=== PATIENT | male | born 1945 | race Caucasian/White ===

== ENCOUNTER → 2018-01-16 14:52 | Outpatient (CLI) | payer MEDICARE, SELFPAY ==
--- NOTE | 2018-01-16 14:56 | XR_ITS ---
XR foot LT min 3V HISTORY: Foot pain ORDERING PHYSICIAN: Suri Leger DPM PATIENT AGE: 72 years COMPARISON: None FINDINGS: Weightbearing views are performed. There is minimal medial subluxation of the proximal phalanx of the second and third toe by 2 to 3 mm. There is a faint lucency along the dorsal proximal aspect of the navicular which could represent an avulsion injury age indeterminate. No other significant anomalies are evident. IMPRESSION: 1. Mild medial subluxation of the proximal phalanx of the second and third toe 2. Probable old avulsion injury of the dorsal and proximal aspect of the navicular
--- NOTE | 2018-01-16 14:56 | XR_ITS ---
XR ankle LT min 3V HISTORY: Left ankle pain ORDERING PHYSICIAN: Suri Leger DPM PATIENT AGE: 72 years COMPARISON: None FINDINGS: Weightbearing views are performed. No fracture or dislocation is evident. Minimal hypertrophic changes are present involving the distal tibia anteriorly and posteriorly as well as the medial malleolus. There is pain calcification within the inner osseous ligament region of the distal tibia and fibula. The ankle joint space is well preserved and the talar dome has an unremarkable appearance. IMPRESSION: 1. Degenerative change with hypertrophic changes of the distal tibia. 2. Calcification within the interosseous ligament which could be due to prior trauma
--- NOTE | 2018-01-16 14:56 | XR_ITS ---
XR foot RT min 3V HISTORY: ORDERING PHYSICIAN: Suri Leger DPM PATIENT AGE: 72 years COMPARISON: None FINDINGS: No fracture or dislocation. No lytic or blastic change. There is normal mineralization.. Osteoarthritic changes are present at the first metatarsophalangeal joint with bony hypertrophic changes of the distal aspect of the first metatarsal. There is some mild mineralization along the anterior aspect of the ankle joint with osteoarthritic changes of the ankle. Prominent os trigonum is noted. There is also mild prominence of the talar beak. IMPRESSION: 1. Osteoarthritis of the first metatarsophalangeal joint. 2. Osteoarthritis of the ankle with mild calcification anterior to the ankle joint
--- NOTE | 2018-01-16 14:56 | XR_ITS ---
XR ankle RT min 3V HISTORY: Right ankle pain ORDERING PHYSICIAN: Suri Leger DPM PATIENT AGE: 72 years COMPARISON: None FINDINGS: Weightbearing views are performed. There are severe osteoarthritic changes of the ankle joint with loss of joint space, osteosclerosis, and osteophyte formation. There are hypertrophic changes of the distal fibula. Soft tissue calcification noted along the anterior aspect of the ankle joint. There some mild flattening of the talar dome. No acute fracture or dislocation. No obvious lytic or blastic change. IMPRESSION: Severe osteoarthritis of the right ankle with mild flattening of the talar dome and mild periarticular calcification anteriorly
== END ==
PROVIDERS: Visit Provider Podiatrist
DX: M25.572 Pain in left ankle and joints of left foot (principal); M25.571 Pain in right ankle and joints of right foot
CPT/HCPCS: 73610; 73630

== ENCOUNTER → 2019-09-11 13:15 | Outpatient (CLI) | payer MEDICARE, SELFPAY ==
--- NOTE | 2019-09-11 13:16 | CT_ITS ---
PROCEDURE: CT ANKLE RT WO CON CLINICAL HISTORY: Ankle instability and ankle pain Total ankle replacement planning, pain COMPARISON: ANKCMRT XR ankle RT min 3V from 01/16/2018 TECHNIQUE: Axial images obtained with sagittal and coronal reformats. All CT scans at the facility use one or more dose reduction, viz: automated exposure control, ma/kV adjustment per patient size (including targeted exams where dose is matched to indication, i.e. head), or iterative reconstruction technique. FINDINGS: There are severe osteoarthritic changes of the ankle joint with loss of joint space, osteosclerosis, and small sub chondral cysts. There is mild flattening of the talar dome. There are mild osteoarthritic changes of both anterior and posterior subtalar joint. Calcific debris is present at the tip of the lateral malleolus. There are some subarticular cystic changes at the anterior subtalar joint. Prominent calcific debris is present along the posterior aspect of the talocalcaneal joint. Mild subarticular cystic changes involve the calcaneus at the subtalar joint posteriorly. Prominent osteophyte is present along the anterior and mid aspect of the talus. No obvious fracture. The talonavicular joint is unremarkable. The proximal and mid tibia and fibula have an unremarkable appearance. No abnormal fluid collections or soft tissue masses. IMPRESSION: Severe osteoarthritis of the ankle joint with mild osteoarthritic changes of the subtalar joint as described above Dictated by: Karthikeyan Bey MD 09/12/2019 09:26 Electronically signed by Karthikeyan Bey MD in [place] 09/12/2019 09:26
== END ==
PROVIDERS: PCP Family Medicine; Visit Provider Podiatrist
DX: M25.371 Other instability, right ankle (principal); M19.171 Post-traumatic osteoarthritis, right ankle and foot
CPT/HCPCS: 73700

== ENCOUNTER → 2019-09-30 13:56 | Outpatient (CLI) | payer MEDICARE, SELFPAY ==
--- NOTE | 2019-09-30 14:06 | XR_ITS ---
PROCEDURE: XR CALCANEUS RT MIN 2V CLINICAL INDICATION: pain, pre op Left foot and ankle pain COMPARISON: ANKCMRT XR ankle RT min 3V from 01/16/2018 CT ANKLE RT WO CON from 09/11/2019 XR FOOT WT BEARING RT 3V from 09/30/2019 XR ANKLE WT BEARING RT MIN 3V from 09/30/2019 FINDINGS: Osteoarthritic changes are present at the tail 0 tibial joint. There is a prominent calcific density posterior to the talus and may represent a prominent os trigonum or an old fracture of the prominent posterior talar process. There is lateral talar tilt. There are severe osteoarthritic changes of the tibial talar joint with osteosclerosis of the talar dome. Hypertrophic changes are present at the tibiofibular joint and at the tip of the lateral malleolus. There is some hyperostosis of the anterior and distal aspect of the talus with osteoarthritic change of the talonavicular joint. There are mild osteoarthritic changes of the posterior subtalar joint. Osteoarthritic changes are also present at the 1st metatarsal phalangeal joint with bony spurring. No fracture or dislocation. No lytic or blastic change. IMPRESSION: Severe osteoarthritic changes of the ankle with prominent ossicle posterior to the talus which may represent an old freitas's fracture or prominent os trigonum. 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 Lateral talar tilt with sclerosis of the talar dome Dictated by: Karthikeyan Bey MD 09/30/2019 16:02 Electronically signed by Karthikeyan Bey MD in [place] 09/30/2019 16:02
--- NOTE | 2019-09-30 14:07 | XR_ITS ---
PROCEDURE: XR CHEST 2V CLINICAL HISTORY: HTN, PRE OP COMPARISON: No exams were available for comparison FINDINGS: The cardiomediastinal silhouette and pulmonary vascularity are within normal limits. The lungs are clear without infiltrates, suspicious nodules, or pleural effusions. No acute bony abnormalities. IMPRESSION: No acute findings. Dictated by: Karthikeyan Bey MD 09/30/2019 15:50 Electronically signed by Karthikeyan Bey MD in [place] 09/30/2019 15:50
--- NOTE | 2019-09-30 14:41 | ECG_ITS ---
APPROVED REPORT Exam: Resting ECG HR:61 bpm ECG Measurements Heart Rate 61 AXES OK 238 P -1 QRSd 80 QRS -12 QT 388 T 50 QTc 390 <Conclusion> Sinus rhythm with 1st degree AV block Nonsignificant Q waves in III and aVF noted Abnormal ECG Electronically signed by : Eliecer Espinal, 10/02/2019 08:12:42
[2019-09-30 15:10] LABS: Basophils # 0.1 K/mm3 (0-0.2); Basophils % 0.8 % (0.1-2.0); Eosinophils # 0.3 K/mm3 (0.0-0.4); Eosinophils % 3.4 % (0.1-12.0); Hematocrit 48.9 % (42.0-52.0); Hemoglobin 16.3 g/dL (14.1-18.0); Lymphocytes # 2.5 K/mm3 (0.7-4.5); Lymphocytes % 28.4 % (10-50); Mean Corpuscular HGB Conc 33.4 g/dL (31.8-35.4); Mean Corpuscular Hemoglobin 31.3 pg (27.0-31.2); Mean Corpuscular Volume 93.6 fl (80-94); Mean Platelet Volume 12.2 fl (7.4-10.4); Monocytes # 0.7 K/mm3 (0.1-1.0); Monocytes % 8.1 % (1.7-9.3); Neutrophils # 5.1 K/mm3 (1.8-7.8); Neutrophils % 59.3 % (37.0-80.0); Platelet Count 197 K/mm3 (142-424); Red Blood Count 5.22 M/mm3 (4.60-6.20); Red Cell Distribution Width 13.6 % (11.5-17.5); White Blood Count 8.7 K/mm3 (4.8-10.8)
[2019-09-30 15:58] LABS: Alanine Aminotransferase 27 U/L (12-78); Albumin Level 3.9 gm/dL (3.4-5.0); Albumin/Globulin Ratio 1.2 (1.1-1.8); Alkaline Phosphatase 74 U/L (46-116); Aspartate Amino Transferase 19 U/L (15-37); Bilirubin,Total 0.4 mg/dL (0.2-1.0); Blood Urea Nitrogen 17 mg/dL (7-18); Carbon Dioxide 27 mmol/L (21.0-32.0); Chloride 106 mmol/L (98-107); Creatinine,Serum 0.84 mg/dL (0.70-1.30); Estimated Glomerular Filt Rate 90 ml/min (>60); GFR (African American) 109 ML/MIN (>60); Globulin 3.2 gm/dl (1.3-3.2); Glucose 99 mg/dL (74-106); Sodium 140 mmol/L (136-145); Total Protein,Serum 7.1 gm/dL (6.4-8.2)
[2019-10-02 09:17] LABS: Vitamin D 25 Hydroxy 17.4 ng/mL (30.0-100.0)
== END ==
PROVIDERS: PCP Internal Medicine; Visit Provider Podiatrist
DX: Z01.818 Encounter for other preprocedural examination; M25.571 Pain in right ankle and joints of right foot; M79.671 Pain in right foot; M65.9 Synovitis and tenosynovitis, unspecified; M85.60 Other cyst of bone, unspecified site
CPT/HCPCS: 36415; 71046; 73610; 73630; 73650; 80053; 82652; 85025; 93005

== ENCOUNTER → 2019-10-20 11:50 | Outpatient (CLI) | payer MEDICARE, SELFPAY ==
--- NOTE | 2019-10-20 11:55 | CA_ITS ---
APPROVED REPORT EXAM: Comprehensive 2D, Doppler, and color-flow Echocardiogram Steel Sampler: Didi Ram CRT Ht: 5 ft 5 in Wt: 200lbs BSA: 1.98 BP: 126/76 mmHg Indications: PRE-OP ANKLE SURGERY IN AM. ABN EKG, COPD, HTN, HLD 2D Dimensions LVOT 1.80 cm (M/F) 1.5-2.5 M-Mode Dimensions RVDd 2.50 cm (0.9-2.6) LA Diam 3.80 cm (1.9-4.0) LVDd 4.00 cm (3.5-5.7) Ao Diam 3.60 cm (2.0-3.7) LVDs 2.30 cm (3.5-5.7) AV Cusp 1.70 cm (1.5-2.6) IVSd 2.00 cm (0.6-1.1) PWd 1.20 cm (0.6-1.1) EF (Teich) 74.10% FS 42.50% EDV (Teich) 70.00 mL ESV (Teich) 18.10 mL LV Diastology E/A Ratio 0.80 MED E' 9.07 (< 7 cm/sec) E'/MED E' Ratio 9.40 (>14) LAT E' 8.68 (<10 cm/sec) E/LAT E' Ratio 9.80 (>14) Aortic Valve AoV Peak Roel. 178.00 (50-130 cm/s) AO Peak GR. 13.00 mmHg Mitral Valve MV E Max Roel. 85.40 (40-130 cm/s) MV A Velocity 101.00 (40-130 cm/s) E/A Ratio 0.80 Pulmonary Valve WA End VMAX 102.00 cm/s PA Accel Time 144.00 (>120 msec) Tricuspid Valve TR P. Velocity 225.00 cm/s RAP Estimate 10.00 mmHg RVSP 30.00 mmHg Left Ventricle Left atrium is mildly enlarged, left ventricle is normal size, mild concentric left ventricular hypertrophy, visually estimated ejection fraction of 55% with no regional wall motion abnormality, septum is sigmoid configuration, grade 1 diastolic dysfunction seen without tissue Doppler evidence of raise left atrial pressure. Right Ventricle Right atrium and right ventricular normal size and contractility. Aortic Valve Aortic valve is thickened and calcified leaflet continue to display good mobility, there is no aortic stenosis or aortic insufficiency. Mitral Valve Mitral valve is grossly normal, there is mild mitral regurgitation. Tricuspid Valve Tricuspid valve is grossly normal, there is mild tricuspid regurgitation. Pulmonic Valve Pulmonic valve is poorly visualized. Great Vessels Aortic root is normal size. Pericardium No significant pericardial effusion noted. Conclusion 1. Mildly enlarged left atrium, normal left ventricular size, mild concentric left ventricular hypertrophy, visually estimated ejection fraction 55% with no regional wall motion abnormality, septum is sigmoid configuration. Grade 1 diastolic dysfunction seen without tissue Doppler evidence of raise left atrial pressure. 2. Thickened and calcified aortic valve without Doppler evidence of aortic stenosis aortic insufficiency. 3. Mild mitral and tricuspid regurgitation. 4. No significant pericardial effusion noted. Electronically signed by : Stew Carranza, 10/21/2019 05:33:03
== END ==
PROVIDERS: PCP Nurse Practitioner Family; Visit Provider Internal Medicine
DX: R94.31 Abnormal electrocardiogram [ECG] [EKG] (principal)
CPT/HCPCS: 93306

== ENCOUNTER 2019-10-21 06:05 | Observation (INO) ==
--- NOTE | 2019-10-21 06:56 | Progress Note ---
[facility] Anesthesia Checklist - Structural Data Admitted From: Home Planned Operative Procedure/s: r total ankle Consent for Planned Operative Procedure(s) Verified: Yes - Additional verifications Anesthesia Reactions: No Hx Blood Transfusions: No Blood Transfusion Reaction: No - Airway Assessment C-Spine Mobility Assessed: Yes TMJ Mobility Assessed: Yes Dentition: Dentures-good fit - Neurological Assessment Level of Consciousness: Awake, Alert, Appropriate - Anesthesia Plan Anesthesia Risk discussed: Yes Anesthesia Plan: Verified ASA Class: II Anesthesia Type: General [facility] History I have reviewed the patient's past medical history: Yes Medical History: Reports:: Chronic Obstructive Pulmonary Disease (COPD), Hyperlipidemia, Hypertension Denies:: Asthma, Cancer, Cerebrovascular Accident, Diabetes Mellitus Type 1, Diabetes Mellitus Type 2, Gastroesophageal Reflux Disease(GERD), Internal Pacemaker, MRSA, Myocardial Infarction, Seizures *Have you ever received a pneumonia vaccine?: No *Have you received a flu vaccine this season?: No Other Medical History: Reports: Arthritis. Denies: Blood Transfusion Reaction Anesthesia experience/problems:: none Laterality Cases: Left: Total Knee Replacement Other Surgeries: Yes: No Previous Surgery, Colonoscopy. No: Pacemaker Amputation: No Fractures: No - *Social History Educational Level: Attended High School Smoking Status: Never smoker Alcohol Intake: never Alcohol Intake Frequency:: other Substance Use Type: denies use *Occupational Status:: retired Housing: house Household Members: spouse *Travel in the last 8 weeks: None Family Hx:: Diabetes, Hyperlipidemia, Hypertension
--- NOTE | 2019-10-21 07:33 | History & Physical Report ---
*Admission Date: 10/21/19 *Reason for consult:: Post Op R Total Ankle Replacement *History of present illness: Mr. Bhagat is a 74 y/o male who presents for admission 23-hour observation after surgery of the right ankle today. Patient had a right ankle arthroplasty (replacement) along with a subtalar joint fusion, peroneal tendon repair and ligament stabilization. No complications during surgery. Patient has a past medical history of COPD, hypertension, hyperlipidemia and an abnormal ECG. Patient usually goes to the [place] but did see [facility] Ortiz/Dr. Newell for medical clearance. Due to the abnormal EKG patient was sent for cardiology clearance. Dr. Felix saw the patient he had an echo and he was cleared for surgery. Postoperatively patient will need medical management. [facility] History I have reviewed the patient's past medical history: Yes Medical History: Reports:: Chronic Obstructive Pulmonary Disease (COPD), Hyperlipidemia, Hypertension Denies:: Asthma, Cancer, Cerebrovascular Accident, Diabetes Mellitus Type 1, Diabetes Mellitus Type 2, Gastroesophageal Reflux Disease(GERD), Internal Pacemaker, MRSA, Myocardial Infarction, Seizures *Have you ever received a pneumonia vaccine?: No *Have you received a flu vaccine this season?: No Other Medical History: Reports: Arthritis. Denies: Blood Transfusion Reaction Anesthesia experience/problems:: none Laterality Cases: Left: Total Knee Replacement Other Surgeries: Yes: No Previous Surgery, Colonoscopy. No: Pacemaker Amputation: No Fractures: No - *Social History Educational Level: Attended High School Smoking Status: Never smoker Alcohol Intake: never Alcohol Intake Frequency:: other Substance Use Type: denies use *Occupational Status:: retired Housing: house Household Members: spouse *Travel in the last 8 weeks: None Family Hx:: Diabetes, Hyperlipidemia, Hypertension Review of Systems - Review of Systems Review of systems:: pertinent systems reviewed and negative unless documented below - Constitutional Denies chills, Denies malaise - Eyes Denies blurry vision - ENT Reports other (dentures), Denies abnormal hearing - *Cardiovascular Denies chest pain, Denies shortness of breath - *Respiratory Denies chest congestion, Denies shortness of breath - *Gastrointestinal Denies abdominal pain, Denies vomiting - *Genitourinary Denies difficulty urinating - *Musculoskeletal Reports limited joint movement - Integumentary/Breasts Reports nail changes, Reports dry skin - *Neurologic Reports localized weakness - Psychiatric Denies abnormal sleep pattern - Endocrine Denies cold intolerance - Hematologic/Lymphatic Reports easy bruising - Allergic/Immunologic Reports GI upset with certain foods Meds Home Medications Medication Instructions Recorded Confirmed Type finasteride 5 mg tablet 5 mg PO DAILY 90 Days tab 01/16/18 10/21/19 History hydrocodone 7.5 mg-acetaminophen 1 tab PO ONCE 01/16/18 10/21/19 History 325 mg tablet hydroxyzine HCl 10 mg tablet 10 mg PO TID-QID PRN 01/16/18 10/21/19 History lisinopril 20 mg tablet 20 mg PO DAILY 90 Days tab 01/16/18 10/21/19 History simvastatin 40 mg tablet 40 mg PO DAILY 90 Days tab 01/16/18 10/21/19 History diclofenac 1 % topical gel 4 g TOPICAL QID #30 g 04/07/19 10/21/19 Rx ondansetron HCl 4 mg tablet 4 mg PO QID PRN #30 tab 10/02/19 10/21/19 Rx Cholecalciferol (Vitamin D3) 50,000 unit PO WEEKLY 10/20/19 10/21/19 History [Vitamin D3 50,000 unit Cap] Ibuprofen 800 mg PO TID 10/20/19 10/21/19 History Allergies Allergy/AdvReac Type Severity Reaction Status Date / Time No Known Allergies Allergy Verified 10/20/19 11:08 Exam Vital signs and Labs for Last 24 Hours: Temp Pulse Resp BP Pulse Ox 97.6 F 60 18 150/84 H 95 10/21/19 06:29 10/21/19 06:29 10/21/19 06:29 10/21/19 06:29 10/21/19 06:29 I & O for Last 24 hours: Intake & Output 10/18/19 10/19/19 10/20/19 10/21/19 11:59 11:59 11:59 11:59 Weight 200 lb - Constitutional no acute distress - *Routine HEENT Exam Head: Present: normocephalic Eye: Present: PERRL - *Routine Neck Exam Present: supple - *Routine Respiratory Exam Present: accessory muscle use, CTA bilaterally - *Routine Cardiovascular Exam Present: RRR - *Routine Abdominal Exam Present: soft, obese - *Routine Rectal Exam Patient deferred: visual exam - *Routine Exam Patient deferred: penile exam - *Routine Extremities Exam Present: edema, pulses intact. Absent: calf tenderness - *Routine Skin Exam Present: intact, dry - *Routine Neurological Exam Present: alert, oriented X3, moving all extremities - Detailed Lower Extremity Exam Leg image: 1 - Right LE splint and dressing clean dry and intact. CFT wnl. Skin temp wnl. Decreased motor function and light touch sensation decreased secondary to nerve block. No calf or thigh pain noted b/l. Results - Labs Labs: All other labs normal. - Diagnostic results Ankle/Foot x-ray: pending Ankle/Foot CT: report reviewed Assessment and Plan (1) Post-traumatic osteoarthritis, right ankle and foot Current visit: Yes Status: Acute Category: Medical Code(s): M19.171 - Pos t-traumatic osteoarthritis, right ankle and foot (2) Right ankle instability Current visit: Yes Status: Acute Category: Medical Code(s): M25.371 - Other instability, right ankle (3) Acquired equinus deformity of right foot Current visit: Yes Status: Acute Category: Medical Code(s): M21.6X1 - Other acquired deformities of right foot (4) Synovitis of right ankle Current visit: Yes Status: Acute Category: Medical Code(s): M65.9 - Synovitis and tenosynovitis, unspecified (5) Chronic pain of right ankle Current visit: Yes Status: Acute Category: Medical Code(s): M25.571 - Pain in right ankle and joints of right foot; G89.29 - Other chronic pain (6) Obesity (BMI 30.0-34.9) Current visit: Yes Status: Acute Category: Medical Code(s): E66.9 - Obesity, unspecified (7) COPD (chronic obstructive pulmonary disease) Current visit: Yes Status: Acute Category: Medical Code(s): J44.9 - Chronic obstructive pulmonary disease, unspecified (8) Abnormal ECG Current visit: No Status: Acute Category: Medical Code(s): R94.31 - Abnormal electrocardiogram [ECG] [EKG] (9) HLD (hyperlipidemia) Current visit: No Status: Acute Qualifiers: Hyperlipidemia type: mixed hyperlipidemia Qualified Code(s): E78.2 - Mixed hyperlipidemia Category: Medical Code(s): E78.5 - Hyperlipidemia, unspecified (10) HTN (hypertension) Current visit: No Status: Acute Qualifiers: Hypertension type: essential hypertension Qualified Code(s): I10 - Essential (primary) hypertension Category: Medical Code(s): I10 - Essential (primary) hypertension - Assessment and plan all Dx Assessment and Plan for all problems:: S/P Right Total Ankle Replacement, STJ arthrodesis, peroneal tendon repair, synovectomy, excision of fracture fragment, lateral ankle ligament stabilization DOS: 10/21/19 Admit for 23 hour observation for pain control, PT evaluation, medical mgmt Consult PCP-Dr. Espinal/[facility] for medical mgmt (COPD, HTN, HLD, abnormal EKG) PT in am for transitions and gait training, NWB Maintain dressing clean dry and intact to the right lower extremity Nonweightbearing to RLE Cryo/Cuff behind the knee Elevate on 2 pillows or foam ramp SCD and DVT prophylaxis-Lovenox, DANAE, SCD Patient will need DME: walker, wheelchair, bedside commode Patient will need medication: Percocet, Toradol e-Rx Lovenox, Zofran, Motrin Likely discharge home tomorrow
--- NOTE | 2019-10-21 07:35 | Operative Note ---
Date of procedure: 10/21/19 Pre-op Diagnosis:: 1. Post-traumatic osteoarthritis of right ankle 2. Primary osteoarthritis of right foot 3. Right ankle instability 4. Equinus contracture of right ankle 5. Gastrocnemius equinus of right lower extremity 6. Synovitis of right ankle 7. Right fibular fracture fragments 8. Chronic midline low back pain without sciatica 9. Obesity, Class I, BMI 30-34.9 Post-op Diagnosis:: Same + peroneal tendon repair (brevis and longus) Procedure performed:: 1. Right total ankle replacement 2. Right subtalar joint arthrodesis 3. Right ankle synovectomy 4. Right tendo Achilles lengthening 5. Right lateral ankle stabilization 6. Right peroneal brevis tendon debridement and repair 7. Right peroneal longus tendon debridement and repair 8. Right excision of fracture fragement 9. Application of amniotic membrane graft 10. Application of posterior splint Surgeon:: Suri Leger DPM STEAMTABLE WORKER:: Parvez Ramos Anesthesia: GETA, regional (R popliteal, saph block) Estimated blood loss (mL): 50 Clinical Note:: RIGHT ANKLE PTOA, LATERAL ANKLE INSTABILITY, SYNOVITIS, STJ OA, EQUINUS: CT RIGHT ANKLE, 09/11/19: FINDINGS: There are severe osteoarthritic changes of the ankle joint with loss of joint space, osteosclerosis, and small sub chondral cysts. There is mild flattening of the talar dome. There are mild osteoarthritic changes of both anterior and posterior subtalar joint. Calcific debris is present at the tip of the lateral malleolus. There are some subarticular cystic changes at the anterior subtalar joint. Prominent calcific debris is present along the posterior aspect of the talocalcaneal joint. Mild subarticular cystic changes involve the calcaneus at the subtalar joint posteriorly. Prominent osteophyte is present along the anterior and mid aspect of the talus. No obvious fracture. The talonavicular joint is unremarkable. The proximal and mid tibia and fibula have an unremarkable appearance. No abnormal fluid collections or soft tissue masses. IMPRESSION: Severe osteoarthritis of the ankle joint with mild osteoarthritic changes of the subtalar joint as described above. X-rays and CT scans were obtained. They were reviewed and discussed with the patient. Concerned over the poor bone and subchondral bone cysts. Order vit D, DEXA, vascular studies. Conservative treatment discussed but not recommended as he has failed bracing, strapping, immobilization, modification of shoe gear, icing, NSAIDs, home stretching, physical therapy, oral/topical NSAIDs and injections. We discussed surgery. All risks and benefits were discussed including but not limited to: damage to blood vessels and nerves, bleeding, infection, wound complications, delayed, mal or non-union of bone, post-traumatic arthritis, need for further surgery, need for removal of implant, subsidence of the implant, implant infection, wearing down of the poly-/implant, prolonged swelling of the extremity, prolonged pain, CRPS/RSD, DVT/PE, conversion to ankle arthrodesis, fractures, below-knee amputation, anesthetic complications and . No guarantees were given. All questions fully answered. The patient verbalized understanding and agreed to proceed with surgery. Consent was obtained. Necessary labs and pre-op testing ordered: CMP, CBC, vit D, EKG, CXR. Medical clearance per Dr. Espinal and cardiac clearance by Dr. Felix. Operative findings:: Ankle and subtalar joint synovitis noted. Multiple ossicles and fracture fragments from the fibula were excised. Attenuation of the anterior talofibular ligament. Peroneus longus tendon tear. Peroneus brevis split tear x4. There was steroid noted in the subtalar joint. Synovitis to the soft tissue in both joints. Equinus deformity noted. Operative note:: On this date and time patient was deemed an appropriate surgical candidate. With informed consent signed, the patient was taken to the operating theater after preop regional right popliteal nerve block. The patient was positioned supine. General anesthesia was induced. Tourniquet was applied to the right thigh @250mmHg. The right lower extremity was prepped and draped in normal sterile fashion. Right Tendo Achilles Lengthening: Attention was directed to the Achilles tendon. Utilizing a 15 blade the Achilles was transected in a adams-fashion with the foot dorsiflexed. Achilles contracture released and range of motion to the ankle was greatly improved. The wound was flushed with bacitracin irrigation. 3-0 nylon was used to reappr oximate the skin in interrupted mattress fashion. Right Ankle Synovectomy: Attention was directed to the anterior ankle where an incision was mapped out medial to the tibialis anterior tendon. Tourniquet was inflated. Dissection carried out in a layered fashion with care to maintain hemostasis. Deep fascia and capsule transected, bone visualized. The bone was soft with cystic pockets noted through the tibial plafond and dome of the talus. The soft tissue was abnormal with pieces of steroid injection as well as synovitis. A piece was removed and sent to pathology as a specimen. The fibrotic scar and the synovitic tissue was sharply debrided. The ankle joint was visualized and synovitic fluid was removed. The wound was flushed with copious amounts of bacitracin in saline. Right Total Ankle Replacement: In accordance with tank tender guidelines and standard technique, Prophecy guided technique was utilized. The bone cutting templates were inserted and the tibia and talar cuts were coupled. Bone was removed without complication. There was hypertrophic bone noted to the gutters which was debrided with a rongur and reciprocating rasp. Overall bone quality was noted to be soft but the implant trials and actual implant did fit well with no concern of fracturing of the bone. Intraoperative fluoroscopy was utilized to check position of trials throughout the case including AP MO and lateral. A liter of saline with bacitracin irrigation was used and pulse lavage to flush out the ankle. Size 2 standard Infinity tibial implant inserted. At size 2 talus implant was inserted. Intraoperative fluoroscopy utilized to check position of the implant. A 6 mm poly-was then trialed and inserted. Good smooth range of motion was noted. Final gutter debridement performed to remove soft tissue. No impingement was noted. Final radiographic views were obtained and the implant was noted to be seated. Right Application of Amniotic Graft: At this point the wound was re-flushed with bacitracin irrigation. A piece of Actishield tissue graft was transected on the back table. It was then further cut in half and a piece was inserted into the each ankle gutter to prevent gutter impingement. The deep tissue layer was repaired with 2-0 Vicryl. Part of the extensor tendon was exposed so a piece of the graft was laid over the extensor and TA tendon and 2-0 Vicryl was used to reapproximate the sheath. The subcutaneous tissue layer was repair with 3-0 Vicryl in a running fashion. Remaining graft inserted prior to skin closure. The skin was closed in a Donotia Allgower suture fashion with 3-0 nylon. Skin was cleansed. Tourniquet deflated and immediate hyperemic response was noted to the digits. Right Excision of Fracture Fragment: After a period of greater than 30 mins, tourniquet was re-inflated. Attention was directed to the lateral foot and ankle where incison mapped out and carried down in layered fashion. Fee fragment osteophytes were noted consistent with previous fibula fracture. They were removed in total. Right STJ Arthrodesis: Attention was directed to the lateral foot and ankle incision was mapped out. Subtalar joint cartilage removed. Subchondral bone plate with fenestrated to good healthy bleeding bone. The area was flushed with copious amounts of normal saline. Next in standard technique a guidewire for 7.0 mm cannula pain was inserted from posterior ankle. Position was checked under intraoperative flu oroscopy in the lateral, AP ankle and calcaneal axial views. Position of screw was appropriate. Screws x2 inserted final x-rays taken which showed adequate placement and reduction of deformity. Right Peroneal Brevis Tendon Debridement and Repair: The brevis had a long lying muscle belly, which was debrided proximal to the curvature of the distal fibula. Four separate tears noted. This tear was split with fraying synovitis and hypertrophy of part of the tendon noted. A 15' blade was used to debride the tendon. A piece of the tendon was sent to the lab as a specimen. Right Peroneal Longus Tendon Debridement and Repair: The longus tendon also had a longitudinal tear. Each of the tears were separately repaired. The peroneal tendons were re-tubularized with 4-0 Vicryl. Next 4-0 Prolene was used to reinforce the entire longitudinal tear in a running locking baseball type fashion. It was flushed with copious amounts of normal sterile saline. Eversion function was noted to be within normal limits. Half of an amnio graft was cut and wrapped around the peroneal tendons so they would not adhesions or adhered to the staple or deep tissue. Right Lateral Ankle Stabilization: The anterior talofibular ligament was identified and repair with 2-0 Vicryl and 4-0 Prolene. Negative anterior drawer noted. Remaining soft tissue was closed. A piece of amniotic graft was placed over the deep fascia and peroneal tendons as there was a defect. It was sutured in place. Next 2-0 Vicryl was repaired used to repair the remaining soft tissue and peroneal tendon sheath. 3-0 Vicryl was used to reapproximate subcutaneous tissue in interrupted fashion. 3-0 nylon was then used to reapproximate the skin in an interrupted mattress suture fashion. Skin was cleansed. Viaflow inserted into the incision sites. Tourniquet deflated and immediate hyperemic response was noted to the digits. Xeroform and a dry sterile dressing was then applied to the left foot, followed by a posterior splint. The patient was awoken from anesthesia and transferred to recovery with vital signs stable and neurovascular status intact. Materials: [employer] Infinity Ankle Implant (2 standard tibia, 2 talus, 6mm poly) Gutierrez 7.0mm cannulated screw beam x 2 (80mm) Gutierrez 4.0mm cannulated screw x 1 (44 length) Actishield graft x 1 (4x8cm) Amnio graft x 1 (3x4cm) ViaFlow x1 (2cc) Admit for 23 hour observation for pain control, PT evaluation, medical mgmt Consult PCP-Dr. Espinal/Corby Ortiz for medical mgmt (COPD, HTN, HLD, abnormal EK G) PT in am for transitions and gait training, NWB Maintain dressing clean dry and intact to the right lower extremity Nonweightbearing to RLE Cryo/Cuff behind the knee Elevate on 2 pillows or foam ramp SCD and DVT prophylaxis-Lovenox, DANAE, SCD Patient will need DME: walker, wheelchair, bedside commode Patient will need medication: Percocet, Toradol e-Rx Lovenox, Zofran, Motrin Likely discharge home tomorrow Tourniquet time (min): 250 Condition: stable Disposition: observation Specimens:: 1. Right peroneal tendon 2. Right ankle soft tissue Complications:: None
--- NOTE | 2019-10-21 14:31 | Progress Note ---
[facility] Anesthesia Checklist - Patient Identification Patient Identification: Arm Band, Verbal (Name & ) - Structural Data Admitted From: Home Planned Operative Procedure/s: Right ankle total arthroplasty Consent for Planned Operative Procedure(s) Verified: Yes Verified Documents: Surgical Consent, History and Physical - NPO Status Verified Time NPO: 00:00 - Chart Verification Results Verified: CBC, BMP - Additional verifications Anesthesia Reactions: No Hx Blood Transfusions: No Blood Transfusion Reaction: No - Airway Assessment C-Spine Mobility Assessed: Yes TMJ Mobility Assessed: Yes Dentition: Dentures-good fit (Upper) - Neurological Assessment Level of Consciousness: Awake, Alert, Appropriate, Follows Commands Hx Seizures: No Numbness or tingling in extremities: No - Anesthesia Plan Anesthesia Risk discussed: Yes Anesthesia Plan: Verified ASA Class: III Anesthesia Type: General (with right popliteal nerve block) [facility] History I have reviewed the patient's past medical history: Yes Medical History: Reports:: Chronic Obstructive Pulmonary Disease (COPD), Hyperlipidemia, Hypertension Denies:: Asthma, Cancer, Cerebrovascular Accident, Diabetes Mellitus Type 1, Diabetes Mellitus Type 2, Gastroesophageal Reflux Disease(GERD), Internal Pacemaker, MRSA, Myocardial Infarction, Seizures *Have you ever received a pneumonia vaccine?: No *Have you received a flu vaccine this season?: No Other Medical History: Reports: Arthritis. Denies: Blood Transfusion Reaction Comment:: obesity Anesthesia experience/problems:: none Laterality Cases: Left: Total Knee Replacement Other Surgeries: Yes: No Previous Surgery, Colonoscopy. No: Pacemaker Amputation: No Fractures: No - *Social History Educational Level: Attended High School Smoking Status: Never smoker Alcohol Intake: never Alcohol Intake Frequency:: other Substance Use Type: denies use *Occupational Status:: retired Housing: house Household Members: spouse *Travel in the last 8 weeks: None Family Hx:: Diabetes, Hyperlipidemia, Hypertension
--- NOTE | 2019-10-21 14:33 | Progress Note ---
[facility] Anesthesia Record Part I Intake, IV Amount: 2,000 Estimated blood loss (mL): 50 Urine output (mL): 500 Blood Products used (#): none Blood Pressure: 123/63 SaO2: 92 Pulse Rate: 91 Respiratory Rate: 18 Temperature: 98.9 F Patient is:: Drowsy, Mask O2, Nasal O2, Oral/Nasal airway, Stable Stable to PACU at:: 14:20
--- NOTE | 2019-10-21 14:34 | Progress Note ---
[facility] Anesthesia Record Part II Discharge Time: 14:50 Destination: Medical Surgical Department PACU nurse assessment reviewed?: Yes Patient Condition:: Good Anesthesia Complications:: None Swallowing reflex intact?: Yes Cyanosis?: No
--- NOTE | 2019-10-21 15:32 | Pharmacy Consult Notes ---
[facility] Pharmacy VTE Monitoring - Patient Demographics Admission date: 10/21/19 Report Date: 10/21/19 Time: 15:31 Allergies/Adverse Reactions: Patient Allergies No Known Allergies Allergy (Verified 10/20/19 11:08) Height: 1.65 m Weight: 90.718 kg Patient Problems: Current Active Problems Post-traumatic osteoarthritis, right ankle and foot (Acute) Right ankle instability (Acute) Acquired equinus deformity of right foot (Acute) Synovitis of right ankle (Acute) Chronic pain of right ankle (Acute) Obesity (BMI 30.0-34.9) (Acute) COPD (chronic obstructive pulmonary disease) (Acute) - Prophylaxis VTE Prophylaxis Ordered?: Yes Types of VTE Prophylaxis: TEDS Knee High, IPCS Thigh High, Pharmacological Location of Applied Device: Bilateral Lower Extremeties Pharmacologic Type: Enoxaparin - VTE Diagnosis Confirmed Treatment or plan recommended: Continue Current Treatment
[2019-10-22 06:12] LABS: Basophils % 0.1 % (0.1-2.0); Eosinophils % 0.1 % (0.1-12.0); Hematocrit 39.8 % (42.0-52.0); Hemoglobin 13.5 g/dL (14.1-18.0); Lymphocytes # 1.3 K/mm3 (0.7-4.5); Lymphocytes % 7.8 % (10-50); Mean Corpuscular Volume 90.5 fl (80-94); Mean Platelet Volume 12.3 fl (7.4-10.4); Monocytes # 1.1 K/mm3 (0.1-1.0); Monocytes % 6.8 % (1.7-9.3); Neutrophils % 85.2 % (37.0-80.0); Platelet Count 160 K/mm3 (142-424); Red Blood Count 4.39 M/mm3 (4.60-6.20); Red Cell Distribution Width 12.8 % (11.5-17.5); White Blood Count 16.5 K/mm3 (4.8-10.8)
[2019-10-22 06:24] LABS: Albumin Level 3.3 gm/dL (3.4-5.0); Albumin/Globulin Ratio 1.1 (1.1-1.8); Anion Gap 14.9 mEq/L (5-15); Bilirubin,Total 0.3 mg/dL (0.2-1.0); Calcium 7.9 mg/dL (8.5-10.1); Total Protein,Serum 6.3 gm/dL (6.4-8.2)
[2019-10-22 07:22] LABS: Lymphocytes % 8 % (10-50); Monocytes % 7 % (2-9); Neutrophils % 85 % (42-76); Total Cells Counted 100
[2019-10-22 07:23] LABS: RBC Morphology Normal
--- NOTE | 2019-10-22 07:52 | Consult Report ---
*Admission Date: 10/21/19 *Reason for consult:: med consult-continuity *History of present illness: Mr. Bhagat is a 74 y/o male who presents for admission 23-hour observation after surgery of the right ankle today. Patient had a right ankle arthroplasty (replacement) along with a subtalar joint fusion, peroneal tendon repair and ligament stabilization. No complications during surgery. Patient has a past wi dical history of COPD, hypertension, hyperlipidemia and an abnormal ECG. Patient usually goes to the [facility] but did see Amelia Ortiz/Dr. Ferro for medical clearance. Due to the abnormal EKG patient was sent for cardiology clearance. Dr. Felix saw the patient he had an echo and he was cleared for surgery. This morning patient reports numbness in the foot. He denies any problems overnight. I have been consulted for medical management of patient stable problems [facility] History I have reviewed the patient's past medical history: Yes Medical History: Reports:: Chronic Obstructive Pulmonary Disease (COPD), Hyperlipidemia, Hypertension Denies:: Asthma, Cancer, Cerebrovascular Accident, Diabetes Mellitus Type 1, Diabetes Mellitus Type 2, Gastroesophageal Reflux Disease(GERD), Internal Pacemaker, MRSA, Myocardial Infarction, Seizures *Have you ever received a pneumonia vaccine?: No *Have you received a flu vaccine this season?: No Other Medical History: Reports: Arthritis. Denies: Blood Transfusion Reaction Anesthesia experience/problems:: none Laterality Cases: Left: Total Knee Replacement Other Surgeries: Yes: No Previous Surgery, Colonoscopy. No: Pacemaker Amputation: No Fractures: No - *Social History Educational Level: Attended High School Smoking Status: Never smoker Alcohol Intake: never Alcohol Intake Frequency:: other Substance Use Type: denies use *Occupational Status:: retired Housing: house Household Members: spouse *Travel in the last 8 weeks: None Family Hx:: Diabetes, Hyperlipidemia, Hypertension Review of Systems - Review of Systems Review of systems:: pertinent systems reviewed and negative unless documented below - *Neurologic Reports localized weakness, Denies abnormal hearing Meds Home Medications Medication Instructions Recorded Confirmed Type finasteride 5 mg tablet 5 mg PO DAILY 90 Days tab 01/16/18 10/21/19 History hydrocodone 7.5 mg-acetaminophen 1 tab PO ONCE 01/16/18 10/21/19 History 325 mg tablet hydroxyzine HCl 10 mg tablet 10 mg PO TID-QID PRN 01/16/18 10/21/19 History lisinopril 20 mg tablet 20 mg PO DAILY 90 Days tab 01/16/18 10/21/19 History simvastatin 40 mg tablet 40 mg PO DAILY 90 Days tab 01/16/18 10/21/19 History diclofenac 1 % topical gel 4 g TOPICAL QID #30 g 04/07/19 10/21/19 Rx ondansetron HCl 4 mg tablet 4 mg PO QID PRN #30 tab 10/02/19 10/21/19 Rx Cholecalciferol (Vitamin D3) 50,000 unit PO WEEKLY 10/20/19 10/21/19 History [Vitamin D3 50,000 unit Cap] Ibuprofen 800 mg PO TID 10/20/19 10/21/19 History Allergies Allergy/AdvReac Type Severity Reaction Status Date / Time No Known Allergies Allergy Verified 10/20/19 11:08 Exam Vital signs and Labs for Last 24 Hours: Temp Pulse Resp BP Pulse Ox 98.1 F 63 18 111/65 93 L 10/22/19 04:00 10/22/19 04:00 10/22/19 04:00 10/22/19 04:00 10/22/19 07:03 Laboratory Results - last 24 hr 10/21/19 07:40: Urine Color Yellow, Urine Appearance Clear, Urine pH 6.0, Ur Specific [place] >= 1.030, Urine Protein Negative, Urine Glucose (UA) Negative, Urine Ketones Negative, Urine Blood Negative, Urine Nitrate Negative, Urine Bilirubin Negative, Urine Urobilinogen 0.2, Ur Leukocyte Esterase Negative, Urine RBC Occasional, Urine WBC Occasional, Ur Squamous Epith Cells Occasional, Urine Bacteria None 10/22/19 05:45: WBC 16.5 H, RBC 4.39 L, Hgb 13.5 L, Hct 39.8 L, MCV 90.5, MCH 30.8, MCHC 34.0, RDW 12.8, Plt Count 160, MPV 12.3 H, Neut % (Auto) 85.2 H, Lymph % (Auto) 7.8 L, [place] % (Auto) 6.8, Eos % (Auto) 0.1, Baso % (Auto) 0.1, Neut # (Auto) 14.0 H, Lymph # (Auto) 1.3, [place] # (Auto) 1.1 H, Eos # (Auto) 0.0, Baso # (Auto) 0.0, Total Counted 100, Neutrophils % (Manual) 85 H, Lymphocytes % (Manual) 8 L, Monocytes % (Manual) 7, Platelet Estimate Slight decrease, RBC Mor phology Normal 10/22/19 05:45: Sodium 141, Potassium 3.9, Chloride 105, Carbon Dioxide 25, Anion Gap 14.9, BUN 26 H, Creatinine 1.17, Estimated Creat Clear 79, Estimated GFR 61, Est GFR ( Amer) 74, Glucose 145 H, Calcium 7.9 L, Total Bilirubin 0.3, AST 34, ALT 24, Alkaline Phosphatase 51, Total Protein 6.3 L, Albumin 3.3 L , Globulin 3.0, Albumin/Globulin Ratio 1.1 I & O for Last 24 hours: Intake & Output 10/19/19 10/20/19 10/21/19 10/22/19 11:59 11:59 11:59 11:59 Intake Total 2320 / 2320 Output Total 650 / 650 Balance 1670 / 1670 Weight 200 lb 216 lb 2 oz - Constitutional no acute distress - *Routine HEENT Exam Head: Present: normocephalic Eye: Present: EOMI, PERRL ENT: Present: mucous membranes moist - *Routine Neck Exam Present: supple. Absent: lymphadenopathy - *Routine Respiratory Exam Present: CTA bilaterally - *Routine Cardiovascular Exam Present: RRR - *Routine Abdominal Exam Present: soft, normoactive bowel sounds. Absent: tenderness - *Routine Neurological Exam Present: alert, oriented X3 Numbness of the right foot Internal Medicine - CN: Reslt - Labs CBC & Chem 7: 10/22/19 05:45 10/22/19 05:45 Labs: Short CBC 10/22/19 Range/Units 05:45 WBC 16.5 H (4.8-10.8) K/mm3 Hgb 13.5 L (14.1-18.0) g/dL Hct 39.8 L (42.0-52.0) % Plt Count 160 (142-424) K/mm3 [facility] 10/22/19 05:45 Sodium 141 Potassium 3.9 Chloride 105 Carbon Dioxide 25 BUN 26 H Creatinine 1.17 Glucose 145 H Calcium 7.9 L Liver Function 10/22/19 Range/Units 05:45 Total Bilirubin 0.3 (0.2-1.0) mg/dL AST 34 (15-37) U/L ALT 24 (12-78) U/L Alkaline Phosphatase 51 (46-116) U/L Albumin 3.3 L (3.4-5.0) gm/dL Urine 10/21/19 Range/Units 07:40 Urine Color Yellow (Yellow) Urine Appearance Clear (Clear) Urine pH 6.0 (5.0-8.5) Ur Specific [place] >= 1.030 (1.005-1.030) Urine Protein Negative (Negative) Urine Glucose (UA) Negative (Negative) Assessment and Plan (1) Post-traumatic osteoarthritis, right ankle and foot Current visit: Yes Status: Acute Category: Medical Code(s): M19.171 - Post-traumatic osteoarthritis, right ankle and foot (2) Right ankle instability Current visit: Yes Status: Acute Category: Medical Code(s): M25.371 - Other instability, right ankle (3) Acquired equinus deformity of right foot Current visit: Yes Status: Acute Category: Medical Code(s): M21.6X1 - Other acquired deformities of right foot (4) Synovitis of right ankle Current visit: Yes Status: Acute Category: Medical Code(s): M65.9 - Synovitis and tenosynovitis, unspecified (5) Chronic pain of right ankle Current visit: Yes Status: Acute Category: Medical Code(s): M25.571 - Pain in right ankle and joints of right foot; G89.29 - Other chronic pain (6) Obesity (BMI 30.0-34.9) Current visit: Yes Status: Acute Category: Medical Code(s): E66.9 - Obesity, unspecified (7) COPD (chronic obstructive pulmonary disease) Current visit: Yes Status: Acute Category: Medical Code(s): J44.9 - Chronic obstructive pulmonary disease, unspecified (8) Abnormal ECG Current visit: No Status: Acute Category: Medical Code(s): R94.31 - Abnormal electrocardiogram [ECG] [EKG] (9) HLD (hyperlipidemia) Current visit: No Status: Acute Qualifiers: Hyperlipidemia type: mixed hyperlipidemia Qualified Code(s): E78.2 - Mixed hyperlipidemia Category: Medical Code(s): E78.5 - Hyperlipidemia, unspecified (10) HTN (hypertension) Current visit: No Status: Acute Qualifiers: Hypertension type: essential hypertension Qualified Code(s): I10 - Essential (primary) hypertension Category: Medical Code(s): I10 - Essential (primary) hypertension - Assessment and plan all Dx Assessment and Plan for all problems:: While hospitalized patient will continue his home medications
--- NOTE | 2019-10-22 08:01 | Discharge Summary ---
General - General Admission date:: 10/21/19 Discharge date: 10/22/19 HPI HPI: Mr. Bhagat is a 74-year-old male with past medical history of hypertension, hyperlipidemia, COPD and an abnormal EKG who was admitted postoperatively 09/22/2019. Patient underwent a right total ankle replacement and hindfoot reconstruction. Patient is resting comfortably in bed this morning taking solid foods and liquids. He has urinated since the Osei was removed. He denies pain to the right lower extremity. PIYUSH drain intact with no output issues. Patient had DuoNeb treatment after surgery for low O2 sats. He is statting in the high 90s on room air. Hospital Course Hospital Course: The patient had a relatively uneventful hospital course. Patient underwent right ankle replacement and hindfoot reconstruction yesterday 10/21/19. Patient had no complaints overnight. He is now voiding but with pain and burning. His white count was slightly elevated. We discussed use of incentive spirometry and I demonstrated bedside. Patient's technique modified. We also discussed the use of the Osei catheter and how that could put him at risk for UTI. We will start oral antibiotics for the postoperative period. Continue use of spirometer. Patient's appetite has returned and his pain is controlled. PIYUSH drain pulled from the right lower extremity at bedside today. Physical therapy for gait training and other DME recommendations prior to discharge today. Case management ordering DME for patient. Objective Vital signs: Temp Pulse Resp BP Pulse Ox 98.1 F 63 18 111/65 93 L 10/22/19 04:00 10/22/19 04:00 10/22/19 04:00 10/22/19 04:00 10/22/19 07:03 no acute distress - *Routine HEENT Exam Head: Present: normocephalic - *Routine Neck Exam Present: supple - *Routine Respiratory Exam Present: accessory muscle use - *Routine Cardiovascular Exam Present: RRR - *Routine Abdominal Exam Present: soft - *Routine Rectal Exam Patient deferred: visual exam - *Routine Exam Patient deferred: penile exam - *Routine Extremities Exam Present: edema, pulses intact, normal capillary refill, DANAE stockings. Absent: tenderness - *Routine Skin Exam Present: warm - *Routine Neurological Exam Present: alert, oriented X3, moving all extremities - Routine Psychiatric Exam Present: normal affect - Detailed Lower Extremity Exam Comments: Right lower extremity splint and dressing clean dry and intact. Cryo/Cuff applied to right knee. PIYUSH drain intact. It was pulled bedside today. Cap fill time within normal limits. Skin temp warm. Light touch sensation and motor function decreased secondary to nerve block. No calf or thigh pain noted bilaterally. Results Completed studies during hospitalization [Text1]: 3 views right ankle, 3 views right foot, 2 views calcaneal axial reviewed and evaluated by myself. Report noted. Labs performed. Labs on day of discharge: Labs from last 24 hours 10/22/19 10/22/19 10/21/19 05:45 05:45 07:40 WBC 16.5 H RBC 4.39 L Hgb 13.5 L Hct 39.8 L MCV 90.5 MCH 30.8 MCHC 34.0 RDW 12.8 Plt Count 160 MPV 12.3 H Neut % (Auto) 85.2 H Lymph % (Auto) 7.8 L [place] % (Auto) 6.8 Eos % (Auto) 0.1 Baso % (Auto) 0.1 Neut # (Auto) 14.0 H Lymph # (Auto) 1.3 [place] # (Auto) 1.1 H Eos # (Auto) 0.0 Baso # (Auto) 0.0 Total Counted 100 Neutrophils % (Manual) 85 H Lymphocytes % (Manual) 8 L Monocytes % (Manual) 7 Platelet Estimate Slight decrease RBC Morphology Normal Sodium 141 Potassium 3.9 Chloride 105 Carbon Dioxide 25 Anion Gap 14.9 BUN 26 H Creatinine 1.17 Estimated Creat Clear 79 Estimated GFR 61 Est GFR ( Amer) 74 Glucose 145 H Calcium 7.9 L Total Bilirubin 0.3 AST 34 ALT 24 Alkaline Phosphatase 51 Total Protein 6.3 L Albumin 3.3 L Globulin 3.0 Albumin/Globulin Ratio 1.1 Urine Color Yellow Urine Appearance Clear Urine pH 6.0 Ur Specific [place] >= 1.030 Urine Protein Negative Urine Glucose (UA) Negative Urine Ketones Negative Urine Blood Negative Urine Nitrate Negative Urine Bilirubin Negative Urine Urobilinogen 0.2 Ur Leukocyte Esterase Negative Urine RBC Occasional Urine WBC Occasional Ur Squamous Epith Cells Occasional Urine Bacteria None DS: Diagnosis - Discharge Diagnosis (1) Post-traumatic osteoarthritis, right ankle and foot Status: Acute (2) Right ankle instability Status: Acute (3) Acquired equinus deformity of right foot Status: Acute (4) Synovitis of right ankle Status: Acute (5) Chronic pain of right ankle Status: Acute (6) Obesity (BMI 30.0-34.9) Status: Acute (7) COPD (chronic obstructive pulmonary disease) Status: Acute (8) Abnormal ECG Status: Acute (9) HLD (hyperlipidemia) Status: Acute (10) HTN (hypertension) Status: Acute (11) UTI symptoms Start date: 10/22/19 Status: Acute Discharge Plan - Patient Discharge Instructions ACTIVITY: Limited activity, Up with assistance (Strict NWB to RLE) DIET: advance to your usual diet Additional Instructions: Discharge/Plan: Maintain dressing clean dry and intact to the right lower extremity Nonweightbearing to RLE Cryo/Cuff behind the right knee Elevate on 2 pillows or foam ramp SCD and DVT prophylaxis PIYUSH drain pulled prior to discharge Consult case management: Patient will need DME (Patient is unable to use crutches due to large body habitus, incoordination and fall risk and strict NWB status to RLE post op ankle surgery) Patient will need pain medication: Percocet 7.5/325, Levo 500mg qd e-Rx Lovenox, Zofran, Motrin (family picked up already outside pharmacy) - Follow up Plan Follow up with: Leif Felix MD [Staff Physician] - Eliecer Ferro MD [Staff Physician] - 10/29/19 10:15 am Suri Leger DPM [Staff Physician] - 10/29/19 2:00 am Disposition: Home, Self-Skilled Nursing Medications: Home Medications Medication Instructions Recorded Confirmed Type finasteride 5 mg tablet 5 mg PO DAILY 90 Days tab 01/16/18 10/21/19 History hydrocodone 7.5 mg-acetaminophen 1 tab PO ONCE 01/16/18 10/21/19 History 325 mg tablet hydroxyzine HCl 10 mg tablet 10 mg PO TID-QID PRN 01/16/18 10/21/19 History lisinopril 20 mg tablet 20 mg PO DAILY 90 Days tab 01/16/18 10/21/19 History simvastatin 40 mg tablet 40 mg PO DAILY 90 Days tab 01/16/18 10/21/19 History diclofenac 1 % topical gel 4 g TOPICAL QID #30 g 04/07/19 10/21/19 Rx ondansetron HCl 4 mg tablet 4 mg PO QID PRN #30 tab 10/02/19 10/21/19 Rx Cholecalciferol (Vitamin D3) 50,000 unit PO WEEKLY 10/20/19 10/21/19 History [Vitamin D3 50,000 unit Cap] Ibuprofen 800 mg PO TID 10/20/19 10/21/19 History Nitrofurantoin Monohyd/M-Cryst 100 mg PO BID 10 Days #20 cap 10/22/19 Rx [Nitrofurantoin [place]-Mcr 100 mg] Oxycodone HCl/Acetaminophen 1 each PO Q4HP PRN #30 tab 10/22/19 Rx [Percocet 7.5/325mg tablet] Prescriptions/Medication Reconciliation: New Enoxaparin Sodium [Lovenox 40mg/0.4mL syringe] 40 mg SQ DAILY syringe Oxycodone HCl/Acetaminophen [Percocet 7.5/325mg tablet] 1 each PO Q4HP PRN #30 tab PRN Reason: Severe Pain Continued hydroxyzine HCl 10 mg tablet 10 mg PO TID-QID PRN PRN Reason: Anxiety diclofenac 1 % topical gel 4 g TOPICAL QID #30 g ondansetron HCl 4 mg tablet 4 mg PO QID PRN #30 tab PRN Reason: nausea and vomiting Ibuprofen 800 mg PO TID Cholecalciferol (Vitamin D3) [Vitamin D3 50,000 unit Cap] 50,000 unit PO WEEKLY Nitrofurantoin Monohyd/M-Cryst [Nitrofurantoin [place]-Mcr 100 mg] 100 mg PO BID 10 Days #20 cap Held hydrocodone 7.5 mg-acetaminophen 325 mg tablet 1 tab PO ONCE Discontinued simvastatin 40 mg tablet 40 mg PO DAILY 90 Days tab lisinopril 20 mg tablet 20 mg PO DAILY 90 Days tab finasteride 5 mg tablet 5 mg PO DAILY 90 Days tab - Problem Reconciliation Problems Reviewed?: Yes
--- OUTSIDE RECORDS SUMMARY | 2019-10-22 14:17 | External Medical Summary | Continuity of Care Document ---
:1945 Author Organization [facility] Address [address] [facility] [address] [place] [address] Phone Care Team Providers Name Role Phone [place] Attending Provider Michael Noel Primary Care Provider Maty Arteaga Primary Care Provider Elvira Attending Provider Angel Primary Care Provider Allergies, Adverse Reactions, Alerts No known allergies. Medications Medication Status Dose Units Route Sig Qty Days Start End Instruct ions Date Date Hydroxyzine Active 10 MG Oral 3 to 4 January Hcl times 2017 per day 3:32pm Hydrocodone/Ac Active 1 TAB Oral Once January On H old: etaminophen 2017 Resu me on 3:32pm 11/02/19. Resume once he stops the Percocet (post op pain meds) Diclofenac Active 4 G Topical Four April 07, ap ply to Sodium times a 2018 single knee , day 1:47pm ankle, foot; gently massage into area; for foot includes sole/toes/top of foot Ondansetron Active 4 MG Oral Four September a 2018 2:33pm Cholecalcifero Active 22898 UNIT Oral Weekly October (Vitamin D3) 2018 4:26pm Ibuprofen Active 800 MG Oral Three October times a 2018 4:26pm Enoxaparin Active 40 MG SUBCUTANE Daily October OU2018 8:06am Nitrofurantoin Active 100 MG Oral Twice a October Monohyd/M-Malena , admin ister t 2018 with a 8:14am meal/food Finasteride Active 5 MG Oral Daily October 22, 2019 11:37am Lisinopril Active 20 MG Oral Daily October 22, 2019 11:37am Simvastatin Active 40 MG Oral Daily October 22, 2019 11:37am Oxycodone Active 1 TAB Oral EVERY 09 November Hcl/Acetaminop 4-6 2018 11:41am Problems Active Problems Medical Problem Onset Date Status Post-traumatic osteoarthritis, right Act kalpesh ankle and foot Encounter for pre-operative Active cardiovascular clearance UTI symptoms Active Acquired equinus deformity of right Acti ve foot Chronic pain of right ankle Active HLD (hyperlipidemia) Active Obesity (BMI 30.0-34.9) Active Synovitis of right ankle Active Abnormal ECG Active Right ankle instability Active COPD (chronic obstructive pulmonary Acti ve disease) HTN (hypertension) Active Procedures Procedure Date Performed Status CT ankle RT wo con September 11, 2019 completed XR foot RT min 3V October 21, 2019 completed XR ankle RT min 3V October 21, 2019 completed XR calcaneus RT min 2V October 21, 2019 completed XR ankle RT 2V October 21, 2019 completed Total Ankle Arthroplasty October 21, 2019 8:10am complete d (Right) October 21, 2019 7:30am completed October 21, 2019 7:30am completed XR foot wt bearing RT 3V September 30, 2019 completed XR ankle wt bearing RT min 3V September 30, 2019 completed XR calcaneus RT min 2V September 30, 2019 completed XR chest 2V September 30, 2019 completed ECG stat Besson September 30, 2019 completed Relevant Diagnostic Tests and/or Laboratory Data Laboratory Results Test Date/Time Result Interpretation Reference Result Comment Performing Range Site White Blood September 8.7 K/mm3 4.8-10.8 [facility], [address] [place] [address] E Count 2018 [place] [address] 2:21pm White Blood October 16.5 K/mm3 4.8-10.8 [facility], [address] [place] [address] E Count 2018 [place] [address] 5:45am Red Blood September 5.22 M/mm3 4.60-6.20 [facility], [address] [place] [address] E Count 2018 [place] [address] 2:21pm Red Blood Zachariah 4.39 M/mm3 4.60-6.20 [facility], [address] [place] [address] E Count 2018 [place] [address] 5:45am Hemoglobin September 16.3 g/dL 14.1-18.0 [facility], [address] [place] [address] E 2018 [place] [address] 2:21pm Hemoglobin October 13.5 g/dL 14.1-18.0 [facility], [address] [place] [address] E 2018 [place] [address] 5:45am Hematocrit September 48.9 % 42.0-52.0 [facility], [address] [place] [address] E 2018 [place] [address] 2:21pm Hematocrit October 39.8 % 42.0-52.0 [facility], [address] [place] [address] E [address] [place] [address] 5:45am Mean September 93.6 fl 80-94 [facility], [address] [place] [address] E Corpuscular 2018 [place] [address] Volume 2:21pm Mean October 90.5 fl 80-94 [facility], [address] [place] [address] E Corpuscular 2018 [place] [address] Volume 5:45am Mean September 31.3 pg 27.0-31.2 [facility], [address] [place] [address] E Corpuscular 2018 [place] [address] Hemoglobin 2:21pm Mean October 30.8 pg 27.0-31.2 [facility], [address] [place] [address] E Corpuscular 2018 Sherley caryl [place]NDE[place] [address] Hemoglobin 5:45am Mean November 33.4 g/dL 31.8-35.4 [facility], [address] [place] [address] 36 E Corpuscular 2018 Sherley HERNANDE[place] [address] Hemoglobin 2:21pm Concent Mean Zachariah 34.0 g/dL 31.8-35.4 [facility], [address] [place] [address] 36 E Corpuscular 2018 Sherley HERNANDEZ [address]179 Hemoglobin 5:45am Concent Red Cell November 13.6 % 11.5-17.5 [facility], [address] [place] [address] 36 E Distribution 2018 Emely [place] [address] Width 2:21pm Red Cell Zachariah 12.8 % 11.5-17.5 [facility], [address] [place] [address] 36 E Distribution 2018 Emely HERNANDEZ [address] Width 5:45am Platelet September 197 K/mm3 142-424 [facility], [address] [place] [address] 36 E Count 2018 Jaswant HERNANDEZ 23893 2:21pm Platelet October 160 K/mm3 142-424 [facility], [address] [place] [address] 36 E Count 2018 Jaswant Dixon 5:45am Mean Platelet September 12.2 fl 7.4-10.4 [facility], [address] [place] [address] 36 E Volume 2018 Jaswant HERNANDEZ 53284 2:21pm Mean Platelet Zachariah 12.3 fl 7.4-10.4 [facility], [address] [place] [address] 36 E Volume 2018 Jaswant HERNANDEZ [address] 5:45am Neutrophils November 59.3 % 37.0-80.0 [facility], [address] [place] [address] 36 E (%) (Auto) 2018 Noam HERNANDEZ [address] 2:21pm Neutrophils Zachariah 85.2 % 37.0-80.0 [facility], [address] [place] [address] 36 E (%) (Auto) 2018 Noam HERNANDEZ 10549 5:45am Lymphocytes November 28.4 % 10-50 [facility], [address] [place] [address] 36 E (%) (Auto) 2018 Noam HERNANDEZ 79499 2:21pm Lymphocytes Zachariah 7.8 % 10-50 [facility], [address] [place] [address] 36 E (%) (Auto) 2018 Cynthian a M[place] [address] 5:45am Monocytes (%) November 8.1 % 1.7-9.3 [facility], [address] [place] [address] 36 E (Auto) 2018 [place] [address] 2:21pm Monocytes (%) Zachariah 6.8 % 1.7-9.3 [facility], [address] [place] [address] 36 E (Auto) 2018 [place] [address] 5:45am Eosinophils November 3.4 % 0.1-12.0 [facility], [address] [place] [address] E (%) (Auto) 2018 Cynthian a M[place] [address] 2:21pm Eosinophils Zachariah 0.1 % 0.1-12.0 [facility], [address] [place] [address] E (%) (Auto) 2018 Cynthian a M[place] [address] 5:45am Basophils (%) September 0.8 % 0.1-2.0 [facility], [address] [place] [address] E (Auto) 2018 [place] [address] 2:21pm Basophils (%) Zachariah 0.1 % 0.1-2.0 [facility], [address] [place] [address] E (Auto) 2018 [place] [address] 5:45am Neutrophils # September 5.1 K/mm3 1.8-7.8 [facility], [address] [place] [address] E (Auto) 2018 [place] [address] 2:21pm Neutrophils # October 14.0 K/mm3 1.8-7.8 [facility], [address] [place] [address] 36 E (Auto) 2018 [place] [address] 5:45am Lymphocytes # September 2.5 K/mm3 0.7-4.5 [facility], [address] [place] [address] 36 E (Auto) 2018 [place] [address] 2:21pm Lymphocytes # October 1.3 K/mm3 0.7-4.5 [facility], [address] [place] [address] 36 E (Auto) 2018 [place] [address] 5:45am Monocytes # September 0.7 K/mm3 0.1-1.0 [facility], [address] [place] [address] E (Auto) 2018 [place] [address] 2:21pm Monocytes # Zachariah 1.1 K/mm3 0.1-1.0 [facility], [address] [place] [address] 36 E (Auto) 2018 [place] [address] 5:45am Eosinophils # November 0.3 K/mm3 0.0-0.4 [facility], [address] [place] [address] 36 E (Auto) 2018 [place] [address] 2:21pm Eosinophils # Zachariah 0.0 K/mm3 0.0-0.4 [facility], [address] [place] [address] 36 E (Auto) 2018 [place] [address] 5:45am Basophils # November 0.1 K/mm3 0-0.2 [facility], [address] [place] [address] 36 E (Auto) 2018 [place] [address] 2:21pm Basophils # Zachariah 0.0 K/mm3 0-0.2 [facility], [address] [place] [address] 36 E (Auto) 2018 [place] [address] 5:45am Differential Zachariah 100 [facility], [address] [place] [address] 36 E Total Cells 2018 Sherley HERNANDE[place] [address] Counted 5:45am Neutrophils % Zachariah 85 % 42-76 [facility], [address] [place] [address] 36 E (Manual) 2018 Jaswant [place]NDE[place] [address] 5:45am Lymphocytes % Zachariah 8 % 10-50 [facility], [address] [place] [address] 36 E (Manual) 2018 Jaswant [place]DE[place] [address] 5:45am Monocytes % Zachariah 7 % 2-9 [facility], [address] [place] [address] 36 E (Manual) 2018 Jaswant [place]NDE[place] [address]677 5:45am Platelet Zachariah Slight [facility], [address] [place] [address] 36 E Estimate 2018 decrease Jaswant HER[place]NDEZ [address] 5:45am Red Blood Zachariah Normal [facility], [address] [place] [address] 36 E Cell 2018 Jaswant HERNANDEZ [address] Morphology 5:45am Urine Color Zachariah Yellow Yellow [facility], [address] [place] [address] 36 E 2018 Jaswant HERNANDEZ [address] 7:40am Urine Zachariah Clear Clear [facility], [address] [place] [address] 36 E Appearance 2018 Noam [place] 12295 7:40am Urine pH Zachariah 6.0 5.0-8.5 [facility], [address] [place] [address] 36 E 2018 Jaswant HERNANDE[place] 367[address] 7:40am Urine Zachariah >= 1.030 1.005-1.03 [facility], [address] [place] [address] 36 E Specific 2018 0 Jaswant Dixon [place] 7:40am Urine Protein Zachariah Negative Negative [facility], [address] [place] [address] 36 E 2018 Jaswant Dixon 7:40am Urine Glucose Zachariah Negative Negative [facility], [address] [place] [address] 36 E (UA) 2018 Jaswant Dixon 7:40am Urine Ketones Zachariah Negative Negative [facility], [address] [place] [address] 36 E 2018 Jaswant Madrigal31 7:40am Urine Blood Zachariah Negative Negative [facility], [address] [place] [address] 36 E 2018 Jaswant Madrigal31 7:40am Urine Nitrate Zachariah Negative Negative [facility], [address] [place] [address] 36 E 2018 Jaswant Dixon 7:40am Urine Zachariah Negative Negative [facility], [address] [place] [address] 36 E Bilirubin 2018 Jaswant Dixon 7:40am Urine Zachariah 0.2 EU/dl [facility], [address] [place] [address] 36 E Urobilinogen 2018 Emely HERNANDE[place] 60424 7:40am Urine Zachariah Negative Negative [facility], [address] [place] [address] 36 E Leukocyte 2018 Jaswant Madrigal31 Esterase 7:40am Urine RBC Zachariah Occasional [facility], [address] [place] [address] 36 E 2018 # /hpf Jaswant HERNANDEZ 56324 7:40am Urine WBC Zachariah Occasional [facility], [address] [place] [address] 36 E 2018 #/hpf Jaswant HERNANDEZ 11408 7:40am Urine Zachariah Occasional [facility], [address] [place] [address] 36 E Squamous 2018 #/hpf Jaswant [place]NDE[place] 12728 Epithelial 7:40am Cells Urine Zachariah None /lpf None [facility], [address] [place] [address] 36 E Bacteria 2018 Jaswant Madrigal31 7:40am Sodium Level September 140 mmol/L 136-145 [facility], [address] [place] [address] 36 E 2018 Jaswant HERNANDE[place] [address]0433 2:21pm Sodium Level Zachariah 141 mmol/L 136-145 [facility], [address] [place] [address] 36 E 2018 Jaswant HERNANDEZ 11360 5:45am Potassium November 4.0 mmoL/L 3.5-5.1 [facility], [address] [place] [address] 36 E Level 2018 [place] [address] 2:21pm Potassium Zachariah 3.9 mmoL/L 3.5-5.1 [facility], [address] [place] [address] 36 E Level 2018 [place] [address] 5:45am Chloride September 106 mmol/L 98-107 [facility], [address] [place] [address] E Level 2018 [place] [address] 2:21pm Chloride Zachariah 105 mmol/L 98-107 [facility], [address] [place] [address] 36 E Level 2018 [place] [address] 5:45am Carbon September 27 mmol/L 21.0-32.0 [facility], [address] [place] [address] 36 E Dioxide Level 2018 Lindseytangela hecaryl HER[place]NDE[place] 37353 2:21pm Carbon Zachariah 25 mmol/L 21.0-32.0 [facility], [address] [place] [address] 36 E Dioxide Level 2018 Lindseytangela hecaryl [place]DE[place] [address]3550 5:45am Anion Gap September 11.0 mEq/L 03-25 [facility], [address] [place] [address] 36 E 2018 [place] [address] 2:21pm Anion Gap October 14.9 mEq/L 03-25 [facility], [address] [place] [address] 36 E 2018 Jaswant HERNANDEZ 94641 5:45am Blood Urea September 17 mg/dL 05-28 [facility], [address] [place] [address] 36 E Nitrogen 2018 Jaswant HER[place]NDE[place] 44078 2:21pm Blood Urea October 26 mg/dL 05-28 [facility], [address] [place] [address] 36 E Nitrogen 2018 Jaswant HERNANDE[place] 02784 5:45am Creatinine September 0.84 mg/dL 0.70-1.30 [facility], [address] [place] [address] 36 E 2018 Jaswant [place]DE[place] 56591 2:21pm Creatinine October 1.17 mg/dL 0.70-1.30 [facility] [address] [place] [address] 36 E 2018 Jaswant [place]DE[place] 93641 5:45am Estimated October 79 mL/min 0-300 [facility], [address] [place] [address] 36 E Creatinine 2018 Noam [place] 24176 Clearance 5:45am Estimated GFR September 109 ML/MIN >59 [facility], [address] [place] [address] [facility] 36 E ( 2018 [place] [address] Hungarian) 2:21pm Estimated GFR October 74 ML/MIN >59 [facility], [address] [place] [address] 36 E ( 2018 [place] [address] Hungarian) 5:45am Estimat September 90 ml/min >59 [facility], [address] [place] [address] 36 E Glomerular 2018 Noam HERNANDE[place] 15283 Filtration 2:21pm Rate Estimat October 61 ml/min >59 [facility], [address] [place] [address] 36 E Glomerular 2018 Noam HERNANDE[place] 53594 Filtration 5:45am Rate Glucose Level September 99 mg/dL 74-106 [facility], [address] [place] [address] 36 E 2018 Jaswant [place]NANDEZ 31714 2:21pm Glucose Level October 145 mg/dL 74-106 [facility], [address] [place] [address] 36 E 2018 Jaswant [place]NANDE[place] 33182 5:45am Calcium Level September 9.0 mg/dL 8.5-10.1 [facility], [address] [place] [address] 36 E 2018 Jaswant [place]NANDE[place] 28024 2:21pm Calcium Level October 7.9 mg/dL 8.5-10.1 [facility], [address] [place] [address] 36 E 2018 [place] [address] 5:45am Total September 0.4 mg/dL 0.2-1.0 [facility], [address] [place] [address] 36 E Bilirubin 2018 Jaswant HERNANDEZ 16712 2:21pm Total October 0.3 mg/dL 0.2-1.0 [facility], [address] [place] [address] 36 E Bilirubin 2018 Jaswant [place]NDE[place] 14008 5:45am Aspartate September 19 U/L 15-37 [facility], [address] [place] [address] 36 E Amino Transf 2018 Emely [place] 40457 (AST/SGOT) 2:21pm Aspartate October 34 U/L 15-37 [facility], [address] [place] [address] 36 E Amino Transf 2018 Emely HERNANDEZ 35574 (AST/SGOT) 5:45am Alanine September 27 U/L 78 [facility], [address] [place] [address] 36 E Aminotransfer 2018 Alo [place]NANDEZ 10199 ase 2:21pm (ALT/SGPT) Alanine October 24 U/L [facility], [address] [place] [address] 36 E Aminotransfer 2018 Alo [place]NANDEZ 34911 ase 5:45am (ALT/SGPT) Total Protein September 7.1 gm/dL 6.4-8.2 [facility], [address] [place] [address] 36 E 2018 Jaswant [place]NANDE[place] 50063 2:21pm Total Protein October 6.3 gm/dL 6.4-8.2 [facility], [address] [place] [address] 36 E 2018 Jaswant HERNANDEZ 63929 5:45am Albumin November 3.9 gm/dL 3.4-5.0 [facility], [address] [place] [address] 36 E 2018 Jaswant HERNANDEZ 48523 2:21pm Albumin Zachariah 3.3 gm/dL 3.4-5.0 [facility], [address] [place] [address] 36 E 2018 Jaswant HERNANDEZ 71274 5:45am Globulin November 3.2 gm/dl 1.3-3.2 [facility], [address] [place] [address] 36 E 2018 Jaswant HERNANDEZ 67117 2:21pm Globulin Zachariah 3.0 gm/dl 1.3-3.2 [facility], [address] [place] [address] 36 E 2018 Jaswant HERNANDEZ 20031 5:45am Albumin/Globu November 1.2 1.1-1.8 [facility], [address] [place] [address] 36 E emeterio Ratio 2018 Jaswant HERNANDEZ 29050 2:21pm Albumin/Globu Zachariah 1.1 1.1-1.8 [facility], [address] [place] [address] 36 E emeterio Ratio 2018 Jaswant [place]NANDEZ 32869 5:45am Alkaline November 74 U/L 46-116 [facility], [address] 36 E Phosphatase 2018 Sherley HERNANDEZ 43591 2:21pm Alkaline October 51 U/L 46-116 [facility], [address] [place] [address] 36 E Phosphatase 2018 Sherley HERNANDEZ 73424 5:45am 25-Hydroxy November 17.4 ng/mL Vitamin D [facility] Vitamin D 2018 deficiency has Acct # Total 2:21pm been defined by [id number] the [place] [facility] and an Endocrine Society practice guideline as alevel of serum 25-OH vitamin D less than 20 ng/mL (1,2).The Endocrine Society went on to further define vitamin Dinsufficiency as a level between 21 and 29 ng/mL (2).1. IOM ([place] of Medicine). 2010. Dietary reference intakes for calcium and D. [place]: The National Academies Press.2. Ernesto MF, Yousif NC, Nathaniel lloyd RUIZ, et al. Evaluation, treatment, and prevention of vitamin D deficiency: an Endocrine Society clinical practice guideline. JCEM. 2010; 96(7):1911-30.P erformed at: - [facility] [place] [id number] Director: Kevin Gutierrez PhD, Phone: [phone] Diagnostic Imaging Reports Report Dictated Date/Time Dictated By Status Radiology Report September 11, 2019 Karthikeyan Bey MD completed 1:26pm [facility] [address] [place] [facility] [place] [address] [address] Scan Report Sig hcaranjit Patient: Nikolay Bhagat MR#: [id number] : 1945 Acct:[id number] Age/Sex: 74 / M ADM Date: 9 Loc: RAD Attending Dr: Suri Leger DPM Ordering Physician: Suri Leger DPM Date of Service: 09/11/19 Procedure(s): CT ankle RT wo con Accession Number(s): [id number] cc: Karthikeyan Bey MD; Florian Noel PROCEDURE: CT ANKLE RT WO CON CLINICAL HISTORY: Ankle instability an d ankle pain Total ankle replacement planning, pain COMPARISON: ANKCMRT XR ankle RT min 3V from 01/16/2018 TECHNIQUE: Axial images obtained with sagittal and coronal reformats. All CT scans at the facility use one or more d ose reduction, viz: automated exposure control, ma/kV adjustment per patient size (including targeted exams where dose is matched to indication, i.e. head), or iterative reconstruction technique. FINDINGS: There are severe osteoarthritic changes of the ankle joint with loss of joint space, osteosclerosis, and sma ll sub chondral cysts. There is mild flattening of the talar dome. There are mild osteoarthritic changes of both anterior and posterior subtalar joint. Calcific debris is present at the tip of the lat eral malleolus. There are some subarticular cystic changes at the anterior subtalar joint. Prominent calcific debris is present al keren the posterior aspect of the talocalcaneal joint. Mild subartic ular cystic changes involve the calcaneus at the subtalar joint pos teriorly. Prominent osteophyte is present along the anterio r and mid aspect of the talus. No obvious fracture. The talonavicula r joint is unremarkable. The proximal and mid tibia and fibula have an unremarkable appearance. No abnormal fluid collections or soft t issue masses. IMPRESSION: Severe osteoarthritis of the ankle join t with mild osteoarthritic changes of the subtalar joint as descri bed above Dictated by: Karthikeyan Bey MD 09/12/2019 09:26 Electronically signed by Karthikeyan Bey in [place] 09/12/2019 09:26 Radiology Report September 30, 2019 Karthikeyan Bey MD completed 2:20pm [facility] [address] [facility] [address] [place] [id number] XRay R eport Sig charanjit Patient: Nikolay Bhagat MR#: [id number] : 1945 Acct:[id number] Age/Sex: 74 / M ADM Date: 9 Loc: RAD Attending Dr: Suri Leger DPM Ordering Physician: Suri Leger DPM Date of Service: 09/30/19 Procedure(s): XR chest 2V Accession Number(s): [id number] cc: Karthikeyan Bey MD; Tod Arteaga PROCEDURE: XR CHEST 2V CLINICAL HISTORY: HTN, PRE OP COMPARISON: No exams were available fo r comparison FINDINGS: The cardiomediastinal silhouette and pu lmonary vascularity are within normal limits. The lungs are clear without infiltrates , suspicious nodules, or pleural effusions. No acute bony abnormalities. IMPRESSION: No acute findings. Dictated by: Karthikeyan Bey MD 09/30/2019 15:50 Electronically signed by Karthikeyan Bey in [place] 09/30/2019 15:50 Radiology Report September 30, 2019 Karthikeyan Bey MD completed 2:19pm [facility] [address] [place] [facility] [address] [place] [address] XRay R eport Sig charanjit Patient: Nikolay Bhagat MR#: [id number] : 1945 Acct:[id number] Age/Sex: 74 / M ADM Date: 9 Loc: RAD Attending Dr: Suri Leger DPM Ordering Physician: Suri Leger DPM Date of Service: 09/30/19 Procedure(s): XR calcaneus RT min 2V Accession Number(s): [id number] cc: Karthikeyan Bey MD; Tod Arteaga ~ PROCEDURE: XR CALCANEUS RT MIN 2V CLINICAL INDICATION: pain, pre op Left foot and ankle pain COMPARISON: ANKCMRT XR ankle RT min 3V from 01/16/2018 CT ANKLE RT WO CON from 09/11/2019 XR FOOT WT BEARING RT 3V from 9 XR ANKLE WT BEARING RT MIN 3V from 09/12 FINDINGS: Osteoarthritic changes are present at t he tail 0 tibial joint. There is a prominent calcific density posteri or to the talus and may represent a prominent os trigonum or an old fracture of the prominent posterior talar process. There is lateral talar tilt. There are severe osteoarthritic changes of the tibial talar joint with osteoscl erosis of the talar dome. Hypertrophic changes are present at the tibiofibular joint and at the tip of the lateral malleolus. There is some hyperostosis of the anterior and distal aspect of the talus with osteoarthritic change of the talonavicular joint. There are mil d osteoarthritic changes of the posterior subtalar joint. Osteoarthritic changes are also present at the 1st metatarsal phalangeal joint with bony spurring. No fracture or dislocation. No lytic o r blastic change. IMPRESSION: Severe osteoarthritic changes of the an kle with prominent ossicle posterior to the talus which may repres ent an old freitas's fracture or prominent os trigonum. 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 Lateral talar tilt with sclerosis of th e talar dome Dictated by: Karthikeyan Bey MD 09/30/2019 16:02 Electronically signed by Karthikeyan Bey in [place] 09/30/2019 16:02 Radiology Report September 30, 2019 Karthikeyan Bey MD completed 2:19pm [facility] [address] [place] [facility] [address] [place] [id number] XRay R eport Sig charanjit Patient: Nikolay Bhagat MR#: [id number] : 1945 Acct:[id number] Age/Sex: 74 / M ADM Date: 9 Loc: RAD Attending Dr: Suri Leger DPM Ordering Physician: Suri Leger DPM Date of Service: 09/30/19 Procedure(s): XR foot wt bearing RT 3V Accession Number(s): [id number] cc: Karthikeyan Bey MD; Tod Arteaga ~ PROCEDURE: XR CALCANEUS RT MIN 2V CLINICAL INDICATION: pain, pre op Left foot and ankle pain COMPARISON: ANKCMRT XR ankle RT min 3V from 01/16/2018 CT ANKLE RT WO CON from 09/11/2019 XR FOOT WT BEARING RT 3V from 9 XR ANKLE WT BEARING RT MIN 3V from 09/12 FINDINGS: Osteoarthritic changes are present at t he tail 0 tibial joint. There is a prominent calcific density posteri or to the talus and may represent a prominent os trigonum or an old fracture of the prominent posterior talar process. There is lateral talar tilt. There are severe osteoarthritic changes of the tibial talar joint with osteoscl erosis of the talar dome. Hypertrophic changes are present at the tibiofibular joint and at the tip of the lateral malleolus. There is some hyperostosis of the anterior and distal aspect of the talus with osteoarthritic change of the talonavicular joint. There are mil d osteoarthritic changes of the posterior subtalar joint. Osteoarthritic changes are also present at the 1st metatarsal phalangeal joint with bony spurring. No fracture or dislocation. No lytic o r blastic change. IMPRESSION: Severe osteoarthritic changes of the an kle with prominent ossicle posterior to the talus which may repres ent an old freitas's fracture or prominent os trigonum. 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 Lateral talar tilt with sclerosis of th e talar dome Dictated by: Karthikeyan Bey MD 09/30/2019 16:02 Electronically signed by Karthikeyan Bey in [place] 09/30/2019 16:02 Radiology Report September 30, 2019 Karthikeyan Bey MD completed 2:19pm [facility] [address] [place] [facility] [address] [place] [address] XRay R eport Sig charanjit Patient: Nikolay Bhagat MR#: [id number] : 1945 Acct:[id number] Age/Sex: 74 / M ADM Date: 9 Loc: RAD Attending Dr: Suri Leger DPM Ordering Physician: Suri Leger DPM Date of Service: 09/30/19 Procedure(s): XR ankle wt bearing RT min 3V Accession Number(s): [id number] cc: Karthikeyan Bey MD; Tod Arteaga ~ PROCEDURE: XR CALCANEUS RT MIN 2V CLINICAL INDICATION: pain, pre op Left foot and ankle pain COMPARISON: ANKCMRT XR ankle RT min 3V from 01/16/2018 CT ANKLE RT WO CON from 09/11/2019 XR FOOT WT BEARING RT 3V from 9 XR ANKLE WT BEARING RT MIN 3V from 09/12 FINDINGS: Osteoarthritic changes are present at t he tail 0 tibial joint. There is a prominent calcific density posteri or to the talus and may represent a prominent os trigonum or an old fracture of the prominent posterior talar process. There is lateral talar tilt. There are severe osteoarthritic changes of the tibial talar joint with osteoscl erosis of the talar dome. Hypertrophic changes are present at the tibiofibular joint and at the tip of the lateral malleolus. There is some hyperostosis of the anterior and distal aspect of the talus with osteoarthritic change of the talonavicular joint. There are mil d osteoarthritic changes of the posterior subtalar joint. Osteoarthritic changes are also present at the 1st metatarsal phalangeal joint with bony spurring. No fracture or dislocation. No lytic o r blastic change. IMPRESSION: Severe osteoarthritic changes of the an kle with prominent ossicle posterior to the talus which may repres ent an old freitas's fracture or prominent os trigonum. 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 Lateral talar tilt with sclerosis of th e talar dome Dictated by: Karthikeyan Bey MD 09/30/2019 16:02 Electronically signed by Karthikeyan Bey in [place] 09/30/2019 16:02 Radiology Report October 21, 2019 Karthikeyan Bey MD completed 1:55pm [place] [id number] [facility] [address] [place], [place] [address] XRay R eport Sig charanjit Patient: Nikolay Bhagat MR#: [id number] : 1945 Acct:[id number] Age/Sex: 74 / M ADM Date: 9 Loc: [address] [place] [address]- Attending Dr: Suri Leger DPM Ordering Physician: Suri Leger DPM Date of Service: 10/21/19 Procedure(s): XR ankle RT 2V Accession Number(s): [id number] cc: Karthikeyan Bey MD; Tod Arteaga ~ PROCEDURE: XR ANKLE RT 2V CLINICAL INDICATION: OA RIGHT ANKLE AR THRODESIS COMPARISON: ANKCMRT XR ankle RT min 3V from 01/16/2018 ANKCMLT XR ankle LT min 3V from 018 XR ANKLE WT BEARING RT MIN 3V from 09/12 FINDINGS: Fluoroscopy time: 5 minutes and 12 seco nds. Status post arthrodesis with ankle join t replacement with prosthesis at the distal tibia and the talus. A m edial malleolar screws been placed. Status post calcaneal talar ar throdesis of the anterior subtalar joint. IMPRESSION: Postsurgical change as described above Dictated by: Karthikeyan Bey MD 10/21/2019 15:28 Electronically signed by Karthikeyan Bey in [place] 10/21/2019 15:28 Radiology Report October 21, 2019 Karthikeyan Bey MD completed 2:39pm [address] [place] [address] XRay R eport Sig charanjit Patient: Nikolay Bhagat MR#: [id number] : 1945 Acct:[id number] Age/Sex: 74 / M ADM Date: 9 Loc: 2ND 213-[address]: Suri Leger DPM Ordering Physician: Suri Leger DPM Date of Service: 10/21/19 Procedure(s): XR ankle RT min 3V Accession Number(s): [id number] cc: Karthikeyan Bey MD; Tod Arteaga ~ PROCEDURE: XR ANKLE RT MIN 3V CLINICAL INDICATION: post op total ank le arthroplasty COMPARISON: ANKCMRT XR ankle RT min 3V from 01/16/2018 ANKCMLT XR ankle LT min 3V from 018 XR ANKLE WT BEARING RT MIN 3V from 09/12 XR FOOT RT MIN 3V from 10/21/2019 XR CALCANEUS RT MIN 2V from 10/21/2019 FINDINGS: The status post ankle replacement with distal tibial and talar dome prosthesis. A screw is also present th rough the medial malleolar region. Status post anterior subtalar fusion with 2 lag screws from the posterior calcaneus into the distal talus. There is good alignment. Posterior splint is in plac e. Bony hypertrophy is present at the posterior subtalar joint region. Osteoarthritic changes are present at t he 1st metatarsophalangeal joint with bony hypertrophy IMPRESSION: Good alignment status post total ankle replacement with anterior subtalar joint arthrodesis Dictated by: Karthikeyan Bey MD 10/21/2019 15:32 Electronically signed by Karthikeyan Bey in [place] 10/21/2019 15:32 Radiology Report October 21, 2019 Karthikeyan Bey MD completed 2:39pm [place] [id number] [facility] [address] [place] [address] XRay R eport Sig charanjit Patient: Nikolay Bhagat MR#: [id number] : 1945 Acct:[id number] Age/Sex: 74 / M ADM Date: 9 Loc: 213- Attending Dr: Suri Leger DPM Ordering Physician: Suri Leger DPM Date of Service: 10/21/19 Procedure(s): XR calcaneus RT min 2V Accession Number(s): [id number] cc: Karthikeyan Bey MD; Tod Arteaga PROCEDURE: XR ANKLE RT MIN 3V CLINICAL INDICATION: post op total ank le arthroplasty COMPARISON: ANKCMRT XR ankle RT min 3V from 01/16/2018 ANKCMLT XR ankle LT min 3V from 018 XR ANKLE WT BEARING RT MIN 3V from 09/12 XR FOOT RT MIN 3V from 10/21/2019 XR CALCANEUS RT MIN 2V from 10/21/2019 FINDINGS: The status post ankle replacement with distal tibial and talar dome prosthesis. A screw is also present th rough the medial malleolar region. Status post anterior subtalar fusion with 2 lag screws from the posterior calcaneus into the distal talus. There is good alignment. Posterior splint is in plac e. Bony hypertrophy is present at the posterior subtalar joint region. Osteoarthritic changes are present at t he 1st metatarsophalangeal joint with bony hypertrophy IMPRESSION: Good alignment status post total ankle replacement with anterior subtalar joint arthrodesis Dictated by: Karthikeyan Bey MD 10/21/2019 15:32 Electronically signed by Karthikeyan Bey in [place] 10/21/2019 15:32 Radiology Report October 21, 2019 Karthikeyan Bey MD completed 2:39pm [facility] [address] [place] [facility] [address] [place], [place] [address] XRay R eport Sig charanjit Patient: Nikolay Bhagat MR#: [id number] : 1945 Acct:[id number] Age/Sex: 74 / M ADM Date: 9 Loc: 213- Attending Dr: Suri Leger DPM Ordering Physician: Suri Leger DPM Date of Service: 10/21/19 Procedure(s): XR foot RT min 3V Accession Number(s): [id number] cc: Karthikeyan Bey MD; Tod Arteaga N ~ PROCEDURE: XR ANKLE RT MIN 3V CLINICAL INDICATION: post op total ank le arthroplasty COMPARISON: ANKCMRT XR ankle RT min 3V from 01/16/2018 ANKCMLT XR ankle LT min 3V from 018 XR ANKLE WT BEARING RT MIN 3V from 09/12 XR FOOT RT MIN 3V from 10/21/2019 XR CALCANEUS RT MIN 2V from 10/21/2019 FINDINGS: The status post ankle replacement with distal tibial and talar dome prosthesis. A screw is also present th rough the medial malleolar region. Status post anterior subtalar fusion with 2 lag screws from the posterior calcaneus into the distal talus. There is good alignment. Posterior splint is in plac e. Bony hypertrophy is present at the posterior subtalar joint region. Osteoarthritic changes are present at t he 1st metatarsophalangeal joint with bony hypertrophy IMPRESSION: Good alignment status post total ankle replacement with anterior subtalar joint arthrodesis Dictated by: Karthikeyan Bey MD 10/21/2019 15:32 Electronically signed by Karthikeyan Bey in [place] 10/21/2019 15:32 Health Concerns Concerns Follow up with PCP as instructed. Chief Complaint and Reason for Visit Chief Complaint rt ankle TAR protocol z96.66 1 cws surgical planning visit CXR, EKG and Labs sx clearance echo OR Reason for Visit Acquired equinus deformity o f right foot COPD (chronic obstructive pu lmonary disease) Chronic pain of right ankle Obesity (BMI 30.0-34.9) Post-traumatic osteoarthriti s, right ankle and foot Right ankle instability Synovitis of right ankle UTI symptoms Encounters Encounter Location(s) Arrival/Admit Date Discharge/Depart Date Provider(s) Registered [facility] Physician September 11, 2019 Suri morel , Clinical Group-Radiology 1:15pm DPM Departed [facility] Physician September 30September 30, 2019 Suri Leger Physician/[facility]-Podiatry 2018 11:25am 1:44pm DPM tyra Office Clinic [facility] Visit Registered [facility] Physician September 30Suri Clinical Group-Radiology 2018 1:56pm DPM Departed [facility] Physician October 20October 20, 2019 Russ martin Physician/[facility]-Cardiology 2018 10:25am 11:44am MD Elvira tyra Office -[place] Visit Registered [facility] Physician October 20, Leif Clinical Group-Respirator 2018 11:50am MD Elvira y Therapy Admitted [facility] Physician October 21, Suri Leger , Inpatient Group-Second 2019 6:11am DPM Floor Registered [facility] Physician October 22, Suri Leger , Inpatient Group- 2018 2:05pm DPM Recent Diagnosis Onset Date Acquired equinus deformity of right foot COPD (chronic obstructive pulmonary disease) Chronic pain of right ankle Obesity (BMI 30.0-34.9) Post-traumatic osteoarthritis, right ankle and foot Right ankle instability Synovitis of right ankle UTI symptoms Assessments See care plan goals Functional Status Observation Response Date Recorded Oral Care Ability Independent October 21, 2019 3:50pm Bathing Ability Assistance x1 October 21, 2019 3:50pm Eating (Feeding) Ability Independent October 21, 2019 3:50pm Toileting Ability Assistance X1 October 21, 2019 3:50pm Functional status ambulatory October 20, 2019 3:28pm Functional status ambulatory October 01, 2019 7:36pm weight bearing October 01, 2019 7:36pm Goals Acute Goals Nursing Diagnosis: Knowledge Deficit D isease/Condition Goal(s): Education of di sease process Instruction(s): Follow provider p sina/instructions (See attached discharge education) Follow/up with primary care provider as instructed in discharge packet Ambulatory Goals Patient verbalizes understanding of dise ase process. Patient to follow plan of care. Education provided. Mental Status Observation Response Date Recorded Comprehension Ability No Impairment October 22 11:00am Able to Read Yes October 21, 2019 3:50pm Able to Write Yes October 21, 2019 3:50pm Ability to Follow Directions Good October 212018 6:29am Medical Equipment No Medical Equipment Information available Insurance Providers Guarantor Nikolay Bhagat Address [address] [place] [address] Contact Info. Home Phone: Payer Policy Id Coverage Id Subscriber's Subscriber Effective Expi ration Name Id Date Date AAR [id number] Nikolay Bhagat [id number] Healthcare Options Simone Gimenez [id number] Card Program Out Medicare [id number] Nikolay Bhagat [id number] Self Pay Self N/A Plan of Treatment Follow up as ordered by PCP RIGHT ANKLE PTOA, LATERAL ANKLE INSTABILITY, SYNOVITIS, STJ OA, EQUINUS: CT RIGHT ANKLE, 09/11/19: FINDINGS: There are severe osteoarthritic changes of the ankle joint with loss of joint space, osteosclerosis, and small sub chondral cysts. There is mild flattening of the talar dome. There are mild osteoarthritic changes of both anterior and posterior subtalar joint. Calcific debris is present at the tip of the lateral malleolus. There are some subarticular cystic changes at the anterior subtalar joint. Prominent calcific debris is present along the posterior aspect of the talocalcaneal joint. Mild subarticular cystic changes involve the calcaneus at the subtalar joint posteriorly. Prominent osteophyte is present along the anterior and mid aspect of the talus. No obvious fracture. The talonavicular joint is unremarkable. The proximal and mid tibia and fibula have an unremarkable appearance. No abnormal fluid collections or soft tissue masses. IMPRESSION: Severe osteoarthritis of the ankle joint with mild osteoarthritic changes of the subtalar joint as described above. X-rays and CT scans were obtained. They were reviewed and discussed with the patient. Concerned over the poor bone and subchondral bone cysts. Order vit D, DEXA, vascular studies. Conservative treatment discussed but not recommended as he has failed bracing, strapping, immobilization, modification of shoe gear, icing, NSAIDs, home stretching, physical therapy, oral/topical NSAIDs and injections. We discussed surgery. All risks and benefits were discussed including but not limited to: damage to blood vessels and nerves, bleeding, infection, wound complications, delayed, mal or non-union of bone, post-traumatic arthritis, need for further surgery, need for removal of implant, subsidence of the implant, implant infection, wearing down of the poly-/implant, prolonged swelling of the extremity, prolonged pain, CRPS/RSD, DVT/PE, conversion to ankle arthrodesis, fractures, below-knee amputation, anesthetic complications and . No guarantees were given. All questions fully answered. The patient verbalized understanding and agreed to proceed with surgery. Consent was obtained. Necessary labs and pre-op testing ordered: CMP, CBC, vit D, EKG, CXR. DEXA and vascular studies. Pt will need e-Rx for Zofran, Motrin/Ibuprofen. Patient takes [place] 7.5/325 baseline for chronic low back pain. Patient has no personal or family history of DVT. We discussed DVT prophylaxis with Lovenox x 6 weeks until he starts physical therapy. Risks and benefits were reviewed. Patient is agreed with DVT prophylaxis. He has no crutches, walker or wheelchair. Will need PT POD #1 for transition, gait training and DME recommendations. I recommended a rolling knee scooter as well. Patient goes to the [place] for medical care. He will need medical clearance per his PCP. The patient is being prescribed a controlled substance. The patient has been counseled on the risks and benefits of the medication. I have reviewed with the patient the controlled substance agreement and the patient understands the risks of taking a controlled substance and the expectations set forth in the controlled substance agreement. The [employer] system has been queried and the report has been reviewed. The [employer] query number is: 08132507 Plan surgery for 10/21/2019: 1. Right total ankle replacement 2. Right subtalar joint arthrodesis 3. Right ankle synovectomy 4. Right tendo Achilles lengthening 5. Right lateral ankle stabilization Future Tests Future scheduled test information is unavailable Pending Tests Pending diagnostic test information is unavailable Future Visits Future appointment information is unavailable Referrals to Other Providers Reason for Referral Start Provider Provider Contact Provider Address Referral Date Information Admission to [facility] October 222018 [facility] Eliecer Ferro Work Phone: [address] [employer] [address] Suri Leger Work Phone: [phone] [place] [address] Future Procedures Future procedure information is unavailable Future Medications Future medication information is unavailable Patient Instructions Osteoarthritis Low Back Pain Balanced Diet DI for Ankle Pain DI for Arthritis High Triglycerides Essential Hypertension Heart-Healthy Diet Fat-Restricted Diet Effectiveness of Diets for Weight Loss DI for Urinary Tract Infection (UTI) DI for Surgical Site Infection Enoxaparin Injection DI for Ankle Replacement Ankle Replacement Social History Assigned Sex Male Vital Signs Vital Reading Result Reference Range Collection Date/ Time Height 165.1 cm September 30 1:01pm Weight 90.71 kg September 30 1:01pm BP Systolic 126 mm[Hg] 110-140 November 20th, 2 019 1:49pm BP Diastolic 76 mm[Hg] 60-90 September 30, 2 019 1:49pm BMI (Body Mass Index) 33.3 kg/m2 September 122018 1:01pm Height 165.1 cm October 20, 2 019 11:07am Weight 95.25 kg October 20, 2 019 11:07am Heart Rate 58 /min 60-October 20, 2 019 11:07am Oxygen saturation by 96 % 95-100 October 202018 Pulse oximetry 11:07am BP Systolic 143 mm[Hg] 110-140 October 20, 2 019 11:07am BP Diastolic 69 mm[Hg] 60-90 October 20, 2 019 11:07am BMI (Body Mass Index) 34.9 kg/m2 October 112018 11:07am Height 165.1 cm October 22, 2 019 5:04am Weight 98.03 kg October 22, 2 019 5:04am Body Temperature 98.2 [degF] 97.6-99.6 October 22, 2019 12:00pm Heart Rate 56 /min 60-October 22, 2 019 12:00pm Respiratory rate 18 /min 12-October 22, 2019 12:00pm Oxygen saturation by 97 % 95-100 October 222018 Pulse oximetry 12:00pm BP Systolic 115 mm[Hg] 110-140 October 22, 2 019 12:00pm BP Diastolic 65 mm[Hg] 60-90 October 22, 2 019 12:00pm BMI (Body Mass Index) 35.9 kg/m2 October 112018 5:04am Inhaled oxygen 36 % October 21, 2 019 concentration 6:20pm
== END 2019-10-22 13:28 | disposition home or self-care (01) ==
LOC: 2ND 06:05 → OR 06:05 → 2ND 14:52
PROVIDERS: ADMIT Podiatrist; ATTEND Podiatrist
DX: J44.9 Chronic obstructive pulmonary disease, unspecified; M11.271 Other chondrocalcinosis, right ankle and foot; M85.871 Other specified disorders of bone density and structure, right ankle and foot; M21.961 Unspecified acquired deformity of right lower leg; M65.871 Other synovitis and tenosynovitis, right ankle and foot; M19.171 Post-traumatic osteoarthritis, right ankle and foot; E78.5 Hyperlipidemia, unspecified; I10 Essential (primary) hypertension; M25.371 Other instability, right ankle; M24.574 Contracture, right foot
CPT/HCPCS: 36415; 73600; 73610; 73630; 73650; 76000; 80053; 81001; 85007; 85025; 88304; 88305; 94761; 96374; 97162; C1713; C1762; C1776; C9399; G0378; J2405

== ENCOUNTER → 2019-10-29 15:31 | Outpatient (CLI) | payer MEDICARE, SELFPAY | PROVIDERS: Visit Provider Podiatrist | DX: Z98.890 Other specified postprocedural states (principal); M19.171 Post-traumatic osteoarthritis, right ankle and foot; M25.371 Other instability, right ankle | CPT/HCPCS: 87070; 87205 ==

== ENCOUNTER → 2019-11-16 17:57 | Outpatient (CLI) | payer MEDICARE, OTHER, SELFPAY ==
--- NOTE | 2019-11-16 18:10 | XR_ITS ---
PROCEDURE: XR ANKLE WT BEARING RT MIN 3V CLINICAL INDICATION: postop surgery Follow-up surgery COMPARISON: ANKCMLT XR ankle LT min 3V from 01/16/2018 XR ANKLE WT BEARING RT MIN 3V from 09/30/2019 XR ANKLE RT MIN 3V from 10/21/2019 XR ANKLE RT 2V from 10/21/2019 FINDINGS: Status post ankle replacement with prosthesis at the distal tibia and talar dome. There remains a screw within the medial malleolar region. Two lag screws are present within the calcaneus extending from the posterior aspect of the calcaneus into the anterior aspect of the talus with subtalar fusion. Subcortical lucencies are present at the mid subtalar region. Posterior splint is in place. Accessory ossicles present at talar calcaneal region posteriorly. IMPRESSION: Overall no significant change status post ankle replacement with subtalar fusion Dictated by: Karthikeyan Bey MD 11/16/2019 19:23 Electronically signed by Karthikeyan Bey MD in [place] 11/16/2019 19:23
== END ==
PROVIDERS: PCP Nurse Practitioner Family; Visit Provider Podiatrist
DX: Z98.890 Other specified postprocedural states (principal); M25.371 Other instability, right ankle; M19.171 Post-traumatic osteoarthritis, right ankle and foot
CPT/HCPCS: 73610; 73650

== ENCOUNTER → 2019-12-07 10:13 | Outpatient (CLI) | payer MEDICARE, SELFPAY ==
--- NOTE | 2019-12-07 10:26 | XR_ITS ---
PROCEDURE: XR ANKLE WT BEARING RT MIN 3V CLINICAL INDICATION: post-op views Follow-up ankle replacement and hindfoot fusion COMPARISON: XR ANKLE WT BEARING RT MIN 3V from 09/30/2019 XR ANKLE RT 2V from 10/21/2019 XR ANKLE RT MIN 3V from 10/21/2019 XR ANKLE WT BEARING RT MIN 3V from 11/16/2019 XR CALCANEUS RT MIN 2V from 12/07/2019 XR FOOT WT BEARING RT 3V from 12/07/2019 FINDINGS: Status post ankle replacement with prosthesis at the distal tibia and talar dome which is in good alignment. There is a 1 longitudinal screw present within the medial malleolar region. The proximal aspect of this screw does appear to extend through the cortex of the distal tibia. There has been fusion of the anterior subtalar joint with 2 lag screws from the posterior and inferior aspect of the calcaneus through the subtalar joint anteriorly and into the talus. Degenerative changes are present involving the posterior subtalar joint with hypertrophic changes posteriorly similar to the previous exam. The The joint space at the subtalar joint this still visible although somewhat less apparent posteriorly. Osteoarthritic changes are present at the 1st metatarsophalangeal joint. IMPRESSION: Overall no significant change status post ankle joint fusion and talocalcaneal fusion. The proximal aspect of the screw within the medial malleolar region does appear to extend beyond the cortex proximally by approximately 2 mm. Dictated by: Karthikeyan Bey MD 12/07/2019 12:02 Electronically signed by Karthikeyan Bey MD in [place] 12/07/2019 12:02
== END ==
PROVIDERS: PCP Nurse Practitioner Family; Visit Provider Podiatrist
DX: Z98.890 Other specified postprocedural states (principal); M19.171 Post-traumatic osteoarthritis, right ankle and foot; M25.371 Other instability, right ankle
CPT/HCPCS: 73610; 73630; 73650

== ENCOUNTER → 2019-12-21 10:01 | Outpatient (CLI) | payer MEDICARE, SELFPAY ==
--- NOTE | 2019-12-21 10:14 | XR_ITS ---
PROCEDURE: XR CALCANEUS RT MIN 2V CLINICAL INDICATION: post-op Follow-up surgery/fusion COMPARISON: XR CALCANEUS RT MIN 2V from 12/07/2019 FINDINGS: There has been fusion of the anterior subtalar joint with 2 lag screws from the posterior and inferior aspect of the calcaneus through the subtalar joint anteriorly and into the talus. Degenerative changes are present involving the posterior subtalar joint with hypertrophic changes posteriorly similar to the previous exam. The joint space at the subtalar joint this still visible although somewhat less apparent posteriorly. IMPRESSION: Overall no change status post talocalcaneal fusion and ankle joint replacement Dictated by: Karthikeyna Bey MD 12/21/2019 10:51 Electronically signed by Karthikeyan Bey MD in [place] 12/21/2019 10:51
== END ==
PROVIDERS: PCP Family Medicine; Visit Provider Podiatrist
DX: Z98.890 Other specified postprocedural states (principal); M19.171 Post-traumatic osteoarthritis, right ankle and foot; M25.371 Other instability, right ankle
CPT/HCPCS: 73650

== ENCOUNTER 2020-01-27 09:00 | Outpatient (RCR) | payer MEDICARE, SELFPAY ==
--- NOTE | 2020-01-07 11:23 | HMH.PTOPEV ---
PT Outpatient Evaluation Rehab PT Outpatient Evaluation Start: 01/07/20 09:53 Freq: Status: Active Protocol: Document 01/07/20 09:53 INA (Rec: 01/07/20 11:23 [id number]) Electronically Signed By Pantera Miller, PT 01/07/20 09:53 Outpatient Therapy Subjective History Subjective History Pt. is a 74 year old male who presents to outpatient PT clinic with reports of subacute and intermittent R ankle/ft. P! s/ p RLE talocalcaneal fusion and ankle joint replacement on 10/21/19. Pt. reports having the surgery d/t OA and continuous sprains. Pt. currently reports WBAT w/ SPC in R ankle brace during ambulation, and to work on calf raises at home. Pt. reports having Home Health for a few weeks, but was told to continue with Physical Therapy here. Recent diagnostic imaging looks good per pt. report. Pt. RTMD in 1 month. Pt. also reports being released to drive last Saturday(01/04/20) by . Current medication list includes Lisinopril, Lovastatin, Hydrocodone, and Finasteride. PMH includes HTN, Hypercholesterolemia, and a L TKA. Chief Complaint Pain,Swelling Symptom Type Ache,Dull,Tingling,Other Symptoms Relieved By Rest/Positioning,Ice, Prescription Meds Symptoms Aggravated By Physical Activity,Twisting, Walking Prior Functional Limitations None Current Functional Limitations Sleeping,Recreation Activity, Walking,Stairs,Balance Symptom Description Intermittent Level of pain today (0-10) 0 Pain scale - at its best (0-10) 0 Pain scale - at its worst (0-10) 6 Ankle/Foot Eval Gait Observation General Gait Pattern Observation Antalgic Gait,Decrease Weight Bear (R),Decrease Stride Lngth (L) Assistive Device Ambulation Assistive Device Straight Cane Palpation Tenderness right Ankle/Foot Palpation Findings Tenderness Ankle/
== END 2020-02-10 10:03 | disposition home or self-care (01) ==
LOC: PT.CARL 09:00
PROVIDERS: PCP Family Medicine; Visit Provider Podiatrist
DX: M19.171 Post-traumatic osteoarthritis, right ankle and foot (principal); M25.371 Other instability, right ankle; Z98.890 Other specified postprocedural states
CPT/HCPCS: 97014; 97110; 97112; 97116; 97163; G0283

== ENCOUNTER → 2020-02-01 11:06 | Outpatient (CLI) | payer MEDICARE, SELFPAY ==
--- NOTE | 2020-02-01 11:10 | XR_ITS ---
PROCEDURE: XR ANKLE WT BEARING RT MIN 3V CLINICAL INDICATION: Post-op Right Ankle Replacement COMPARISON: XR ANKLE RT 2V from 10/21/2019 XR ANKLE RT MIN 3V from 10/21/2019 XR ANKLE WT BEARING RT MIN 3V from 11/16/2019 XR ANKLE WT BEARING RT MIN 3V from 12/07/2019 FINDINGS: Status post ankle joint replacement as previously described. Bony hardware remains in place. The medial malleolar screw tip proximally appears to project just beyond the cortex of the distal tibia medially as before. The ankle joint replacement hardware remains in place. There are 2 screws within the calcaneal talar region stabilizing the anterior subtalar joint without evidence of effusion. There are osteoarthritic changes of the posterior subtalar joint with prominent bony hypertrophy posteriorly. IMPRESSION: Good alignment status post ankle joint replacement and anterior subtalar fusion as described above overall not significantly Dictated by: Karthikeyan Bey MD 02/01/2020 11:42 Electronically signed by Karthikeyan Bey MD in [place] 02/01/2020 11:42
== END ==
PROVIDERS: PCP Nurse Practitioner Family; Visit Provider Podiatrist
DX: Z98.890 Other specified postprocedural states (principal); Z96.661 Presence of right artificial ankle joint; M25.571 Pain in right ankle and joints of right foot
CPT/HCPCS: 73610

== ENCOUNTER → 2020-05-03 10:17 | Outpatient (CLI) | payer MEDICARE, SELFPAY ==
--- NOTE | 2020-05-03 10:29 | XR_ITS ---
PROCEDURE: XR ANKLE WT BEARING RT MIN 3V CLINICAL INDICATION: postop views COMPARISON: XR ANKLE RT MIN 3V from 10/21/2019 XR ANKLE WT BEARING RT MIN 3V from 11/16/2019 XR ANKLE WT BEARING RT MIN 3V from 12/07/2019 XR ANKLE WT BEARING RT MIN 3V from 02/01/2020 FINDINGS: There are no significant interval changes. There is an oblique screw with distal tip just within the subcortical margin of the medial distal tibial metaphysis. Ankle mortise prosthesis is noted in good alignment with stable subtalar fusion and ankylosis. Soft tissues are unremarkable. IMPRESSION: Stable postoperative changes above Dictated by: Dl Bradley 05/03/2020 13:26 Electronically signed by Dl Bradley in [place] 05/03/2020 13:26
--- NOTE | 2020-05-03 10:29 | XR_ITS ---
PROCEDURE: XR FOOT WT BEARING RT 3V CLINICAL INDICATION: postop views COMPARISON: 12/07/2019 FINDINGS: There is no interval fracture or dislocation. Fusion of the subtalar joint with 2 lag screws and stable subtalar ankylosis is demonstrated as well as a right ankle prosthesis. IMPRESSION: No acute findings. Postop changes as above Dictated by: Dl Bradley 05/03/2020 13:24 Electronically signed by Dl Bradley in [place] 05/03/2020 13:24
== END ==
PROVIDERS: PCP Internal Medicine; Visit Provider Podiatrist
DX: Z98.890 Other specified postprocedural states (principal)
CPT/HCPCS: 73610; 73630

== ENCOUNTER 2020-09-09 16:11 | Emergency (ER) | payer MEDICARE, SELFPAY ==
[2020-09-09 16:19] VITALS: BP 144/81; PULSE 64; RESP 19; TEMP 36.8; O2SAT 98; BMI 31.9
--- NOTE | 2020-09-09 16:36 | HMH.EDUTC ---
[facility] [place] Clinical Impression: Exposure to COVID-19 virus, Pain, dental Disposition: Home, Self-Care Condition on Discharge: Good Instructions: Preventing the Spread of Coronavirus Discharge Instructions Additional Instructions: Drink plenty of fluids. Take tylenol or ibuprofen for pain or fever. Take the medications as directed. Follow up with your regular doctor. GO TO THE ER FOR ANY WORSENING SYMPTOMS Start the antibiotics that i sent to your pharmacy for your tooth. Follow up with your dentist next week. Prescriptions: Amoxicillin [Amoxicillin 500mg Tab] 500 mg PO TID 10 Days #30 tab Transmission Status: Received by [facility] Referrals: PCP,No [Primary Care Provider] - Time of Disposition: 16:41 Medical Decision Making - Medical Records Medical records reviewed: No: I reviewed the patient's medical records. - Jj Inquiry Pt receiving controlled substance: No Vital Signs: 09/09/20 16:19 09/09/20 16:55 Temperature 98.2 F 98.2 F Temperature Source Oral Oral Pulse Rate 64 Pulse Rate [Radial] 64 Respiratory Rate 19 19 Blood Pressure 144/81 H Blood Pressure [Right Arm] 144/81 H Blood Pressure Mean [Right Arm] 102 Blood Pressure Source Automatic Cuff Blood Pressure Source [Right Arm] Automatic Cuff Blood Pressure Position Sitting Blood Pressure Position [Right Arm] Sitting 02 Sat by Pulse Oximetry 98 Oxygen Delivery Method Room Air Room Air Orders (Tests/Meds): ORDERS Category Date Time Status Covid-19 Nasal PCR ([facility]) Routine Lab 09/09/20 16:20 [place] [facility] [place] - General Stated complaint: covid test Time Seen by Provider: 09/09/20 16:36 Mode of Arrival: Ambulatory Source of Information: Patient Limitations: No Limitations Description of Symptoms (Recalled from Triage Doc. by RN): covid test HEENT Symptoms (Recalled from RN notes): Yes Resp Symptoms (Recalled from RN notes): No Skin Symptoms (Recalled from RN notes): No MS Symptoms (Recalled from RN notes): No Functional Status (Recalled from RN notes): wnl - History of Present Illness Provider Complaint: He is here needing a covid test. He denies any documented exposure, but he states that he had a runny nose for the past 2 days. He denies any fever or chills. - Related Data Home Medications Medication Instructions Recorded Confirmed hydrocodone 7.5 mg-acetaminophen 1 tab PO ONCE 01/16/18 05/03/20 325 mg tablet hydroxyzine HCl 10 mg tablet 10 mg PO TID-QID PRN 01/16/18 05/03/20 Cholecalciferol (Vitamin D3) 50,000 unit PO WEEKLY 10/20/19 05/03/20 [Vitamin D3 50,000 unit Cap] Ibuprofen 800 mg PO TID 10/20/19 05/03/20 meloxicam 7.5 mg tablet 7.5 mg PO DAILY 02/01/20 05/03/20 Previous Rx's Medication Instructions Recorded diclofenac sodium 1 % topical gel 4 g TOPICAL QID #30 g 04/07/19 Finasteride [Proscar] 5 mg PO DAILY 10/22/19 Nitrofurantoin Monohyd/M-Cryst 100 mg PO BID 10 Days #20 cap 10/22/19 [Nitrofurantoin Cedar-Mcr 100 mg] Simvastatin 40 mg PO DAILY 10/22/19 lisinopriL [Zestril 20mg tab] 20 mg PO DAILY tab 10/22/19 Amoxicillin [Amoxicillin 500mg Tab] 500 mg PO TID 10 Days #30 tab 09/09/20 Allergies Allergy/AdvReac Type Severity Reaction Status Date / Time No Known Allergies Allergy Verified 05/03/20 11:27 - Worker's Comp Is this a Worker's Comp case?: No [facility] History - Hepatitis A Screen Drug use history?: No High risk sexual behaviors?: No History of sexually transmitted infection?: No Currently employed?: No Childcare worker?: No Do you have indoor plumbing?: Yes Do you have electricity?: Yes Attestation statement:: This patient has been screened for Hepatitis A risk factors. I have reviewed the patient's past medical history: Yes Medical History: Reports:: Chronic Obstructive Pulmonary Disease (COPD), Hyperlipidemia, Hypertension Denies:: Asthma, Cancer, Cerebrovascular Accident, Diabetes Mellitus Type 1, Diabetes Mellit
[2020-09-09 16:55] VITALS: BP 144/81; PULSE 64; RESP 19; TEMP 36.8; O2SAT 98
--- NOTE | 2020-09-10 08:39 | PC.NURSE ---
Pt called to get his covid result. Results given at this time.
== END 2020-09-09 16:56 | disposition home or self-care (01) ==
PROVIDERS: Emergency Provider Nurse Practitioner Family
DX: U07.1 COVID-19 (principal); J44.9 Chronic obstructive pulmonary disease, unspecified; I10 Essential (primary) hypertension; E78.5 Hyperlipidemia, unspecified; Z79.899 Other long term (current) drug therapy
CPT/HCPCS: G0463; 99201; U0003

== ENCOUNTER 2022-09-03 10:51 | Emergency (ER) | payer MEDICARE, OTHER, SELFPAY ==
[2022-09-03 10:52] VITALS: BP 131/80; PULSE 61; RESP 17; TEMP 36.7; O2SAT 96; BMI 38.7
--- NOTE | 2022-09-03 12:03 | EXP.UTC ---
Discharge Plan Disposition Patient Disposition: Home, Self-Care Condition: Good Prescriptions Prescriptions: No Action meloxicam 7.5 mg tablet 7.5 mg PO DAILY hydroxyzine HCl 10 mg tablet 10 mg PO TID-QID PRN (Reason: Anxiety) hydrocodone-acetaminophen 7.5-325 mg tablet 1 tab PO ONCE Hold Instructions: Resume on 11/02/19. Resume once he stops the Percocet (post op pain meds) diclofenac sodium [Voltaren] 1 % gel 4 g TOPICAL QID Qty: 30 2RF Rx Instructions: apply to single knee, ankle, foot; gently massage into area; for foot includes sole/toes/top of foot ibuprofen 800 MG tablet 800 mg PO TID cholecalciferol (vitamin D3) 50,000 UNIT capsule 50,000 unit PO WEEKLY nitrofurantoin monohyd/m-cryst 100 mg capsule 100 mg PO BID 10 Days Qty: 20 0RF Rx Instructions: must administer with a meal/food lisinopril 20 MG tablet 20 mg PO DAILY 0RF Finasteride [Proscar] 5 mg PO DAILY 0RF Simvastatin 40 mg PO DAILY 0RF amoxicillin 500 MG tablet 500 mg PO TID 10 Days Qty: 30 0RF Referrals Follow up/Referrals: Provider,Referral, MD [Primary Care Provider] - See instructions Activity Restrictions/Add. Instructions Additional Instructions/Restrictions: Take your prescribed pain medication for your back pain *Remember you had a Toradol shot in the clinic today, which is similar to Meloxicam so do not take today *Not additional anti-inflammatory like motrin, aleve, advil with the above amount of ibuprofen. You can still take Tylenol every 4 hours as needed if you need something else for pain *Ice 20 minutes every 2 hours for the first 48 hours after the initial injury followed by moist heat every 20 minutes 3-4 times a day to affected area Follow up with your Family Doctor as scheduled Discuss with your Family Doctor about seeing pain clinic to help with pain in back *Keep this area active, no movement leads to more stiffness, However take it easy and avoid heavy lifting pushing or pulling *Follow up with you family doctor if no improvement for further treatment ? Clinical Impressions Clinical Impression: Low back pain Qualifiers: Chronicity: unspecified Back pain laterality: right Sciatica presence: with sciatica Sciatica laterality: sciatica of right side Qualified Code(s): M54.41 - Lumbago with sciatica, right side Instructions Patient Instructions: Low Back Pain, DI for Low Back Pain, DI for Back Pain With Sciatica Discharge ED Provider: Belen Sun [facility] General Stated complaint: Severe back pain Mode of Arrival: Ambulatory Source of Information: Patient Limitations: No Limitations Time Seen by Provider: 09/03/22 12:03 Description of Symptoms (Recalled from Triage Doc. by RN): severe back pain he has neem riding a tractor for multiple days in a row HEENT Symptoms (Recalled from RN notes): No Resp Symptoms (Recalled from RN notes): No Skin Symptoms (Recalled from RN notes): No MS Symptoms (Recalled from RN notes): Yes Functional Status (Recalled from RN notes): n/A History of Present Illness Provider Complaint: Patient states that he has been being seen at the ID center for back pain and sciatica States that he has had xrays and is scheduled for MRI States that he has been riding on the tractor and thinks he may have flared it back up State that he is having pain on his right side going into his buttock area and and into his right upper leg States that he was wanting to get a shot to see if it would help Related Data Home Medications Medication Instructions Recorded Confirmed hydrocodone 7.5 mg-acetaminophen 1 tab PO ONCE Pain 01/16/18 05/03/20 325 mg tablet hydroxyzine HCl 10 mg tablet 10 mg PO TID-QID PRN Anxiety 01/16/18 05/03/20 cholecalciferol (vitamin D3) 1,250 50,000 unit PO WEEKLY Supplement 10/20/19 05/03/20 mcg (50,000 unit) capsule ibuprofen 800 mg tablet 800 mg PO TID Pain 10/20/19
[2022-09-03 13:57] VITALS: BP 131/80; PULSE 61; RESP 17; TEMP 36.7; O2SAT 96
== END 2022-09-03 13:57 | disposition home or self-care (01) ==
PROVIDERS: Emergency Provider Nurse Practitioner
DX: M54.11 Radiculopathy, occipito-atlanto-axial region (principal); F41.9 Anxiety disorder, unspecified; Z79.1 Long term (current) use of non-steroidal anti-inflammatories (NSAID); Z79.899 Other long term (current) drug therapy
CPT/HCPCS: 96372; 99213; G0463

== ENCOUNTER 2024-06-17 09:53 | Emergency (ER) | payer OTHER, SELFPAY ==
[2024-06-17 09:55] VITALS: BP 135/105; PULSE 64; RESP 16; TEMP 36.4; O2SAT 97; BMI 36.6
[2024-06-17 10:00] VITALS: BP 140/119; PULSE 63; O2SAT 97
--- NOTE | 2024-06-17 10:25 | XR_ITS ---
FINAL REPORT CLINICAL HISTORY: pain, h/o knee replacement COMPARISON: None FINDINGS: Three views of the left knee reveal no evidence of fracture or dislocation. The bony alignment is normal. The patient has undergone prior left knee arthroplasty. Soft tissue calcifications are noted around the knee joint. A moderate-sized joint effusion is present. IMPRESSION: Moderate joint effusion, without acute bony abnormality. Prior left knee arthroplasty Reviewed, Interpreted and Dictated by Óscar Padilla III, MD Transcribed by Jacklyn Francois Authenticated and [facility]
--- NOTE | 2024-06-17 10:25 | XR_ITS ---
FINAL REPORT CLINICAL HISTORY: pain with walking COMPARISON: None FINDINGS: RIGHT ANKLE: Three views of the right ankle were obtained. There is no acute fracture or dislocation. Postoperative changes are present in the right ankle, including tibial talar arthroplasty and talocalcaneal fusion. Moderate degenerative change is present. Lateral soft tissue swelling is noted. IMPRESSION: No acute bony abnormality. Postoperative changes as described, with moderate degenerative change. Reviewed, Interpreted and Dictated by Óscar Padilla III, MD Transcribed by Jacklyn Francois Authenticated and [facility][1]
--- NOTE | 2024-06-17 10:25 | XR_ITS ---
FINAL REPORT CLINICAL HISTORY: pain with walking COMPARISON: None FINDINGS: LEFT TIBIA FIBULA: There is no acute fracture or dislocation. There is mild degenerative change in the ankle joint. There is no soft tissue abnormality. The patient has undergone a prior left knee arthroplasty. IMPRESSION: Prior left knee arthroplasty, no acute bony abnormality identified. Reviewed, Interpreted and Dictated by Óscar Padilla III, MD Transcribed by Jacklyn Francois Authenticated and [facility]
--- NOTE | 2024-06-17 10:25 | XR_ITS ---
FINAL REPORT TECHNIQUE: 4 views left femur CLINICAL HISTORY: pain with walking COMPARISON: None FINDINGS: LEFT FEMUR: 4 images of the left femur were obtained. There is no evidence of fracture or dislocation. The patient has undergone a prior left knee arthroplasty. Only a single view of the left hip was obtained, which is grossly unremarkable. There is no soft tissue abnormality identified. IMPRESSION: No acute bony abnormality. Reviewed, Interpreted and Dictated by Óscar Padilla III, MD Transcribed by Jacklyn Francois Authenticated and [facility]
--- NOTE | 2024-06-17 10:25 | XR_ITS ---
FINAL REPORT CLINICAL HISTORY: pain with walking COMPARISON: None FINDINGS: RIGHT FOOT: Three views of the right foot were obtained. There is no acute fracture or dislocation. Postoperative changes are present in the ankle, including a tibiotalar arthroplasty and talocalcaneal fusion. Moderate degenerative change is present in the foot. There is no soft tissue abnormality. IMPRESSION: Postop changes as described, with moderate degenerative change present in the foot. Reviewed, Interpreted and Dictated by Óscar Padilla III, MD Transcribed by Jacklyn Francois Authenticated and [facility]
[2024-06-17 10:30] VITALS: BP 143/76; PULSE 57; O2SAT 96
--- NOTE | 2024-06-17 10:30 | PC.NURSE ---
pt out of room with Rad for x-ray
--- NOTE | 2024-06-17 11:09 | HMH.EDGENADL ---
Discharge Plan Disposition Patient Disposition: Home, Self-Care Condition: Good Prescriptions Prescriptions: No Action meloxicam 7.5 mg tablet 7.5 mg PO DAILY hydroxyzine HCl 10 mg tablet 10 mg PO TID-QID PRN (Reason: Anxiety) hydrocodone-acetaminophen 7.5-325 mg tablet 1 tab PO ONCE diclofenac sodium [Voltaren] 1 % gel 4 g TOPICAL QID Qty: 30 2RF Rx Instructions: apply to single knee, ankle, foot; gently massage into area; for foot includes sole/toes/top of foot ibuprofen 800 MG tablet 800 mg PO TID cholecalciferol (vitamin D3) 50,000 UNIT capsule 50,000 unit PO WEEKLY nitrofurantoin monohyd/m-cryst 100 mg capsule 100 mg PO BID 10 Days Qty: 20 0RF Rx Instructions: must administer with a meal/food lisinopril 20 MG tablet 20 mg PO DAILY 0RF Finasteride [Proscar] 5 mg PO DAILY 0RF Simvastatin 40 mg PO DAILY 0RF amoxicillin 500 MG tablet 500 mg PO TID 10 Days Qty: 30 0RF Referrals Follow up/Referrals: Yossi Interiano DO [Staff Physician] - See instructions Provider,Referral, [Primary Care Provider] - See instructions Activity Restrictions/Add. Instructions Additional Instructions/Restrictions: You were evaluated in the emergency department today. Please follow-up with Dr. Interiano with orthopedics for further evaluation and management. Take Tylenol at home as needed for pain. Return to the emergency department for new or worsening symptoms. Clinical Impressions Clinical Impression: Effusion of left knee, Ankle pain, right Instructions Patient Instructions: DI for Acute Pain -- Adult, DI for Knee Effusion Print Language Print Language: Brazilian Discharge ED Provider: Maris Randhawa General Adult HPI General Chief complaint: PAIN Stated complaint: pain in L knee and R ankle Time Seen by Provider: 06/17/24 10:18 Mode of Arrival: Ambulatory Source of Information: Patient Limitations: No Limitations Description of Symptoms (Recalled from ER Triage Doc. by RN): Patient states that he is having right ankle and left knee pain since yesterday. States he was fishing all day yesterday and when he got home the pain started and just hasn't gotten better. History of Present Illness HPI narrative: This patient is a 79-year-old male with a history of hypertension, hyperlipidemia, and chronic pain presenting to the emergency department for evaluation with concern for a flareup of chronic left knee and right ankle pain. The pain is at the back of his left knee and around his right ankle joint. He states that he was fishing all day yesterday to get ready for a fish hernandez, and when he got home the pain got worse and has not gotten better. He states that usually bothers him the worst in the mornings but gets better as he gets up and moves around. He states he has had a left knee replacement and has to get injections in his right ankle because of arthritis. No new falls or injuries. He is able to bear weight and ambulate still. He states that the pain is a little bit better after propping his leg up on the bed since getting here. No redness, warmth, skin color changes, fevers, chills, numbness, tingling, or other concerns. He states he wanted to get x-rays Related Data Home Medications ?Medication ?Instructions ?Recorded ?Confirmed hydrocodone 7.5 mg-acetaminophen 1 tab PO ONCE Pain 01/16/18 05/03/20 325 mg tablet hydroxyzine HCl 10 mg tablet 10 mg PO TID-QID PRN Anxiety 01/16/18 05/03/20 cholecalciferol (vitamin D3) 1,250 50,000 unit PO WEEKLY Supplement 10/20/19 05/03/20 mcg (50,000 unit) capsule ibuprofen 800 mg tablet 800 mg PO TID Pain 10/20/19 05/03/20 meloxicam 7.5 mg tablet 7.5 mg PO DAILY 02/01/20 05/03/20 Previous Rx's ?Medication ?Instructions ?Recorded diclofenac sodium 1 % topical gel 4 g topical QID pain #30 grams 04/07/19 (Voltaren) Finasteride [Proscar] 5 mg PO DAILY 10/22/19 Simvastatin 40 mg PO DAILY 10/22/19 lisinopril 20 mg tablet 20 mg PO DAILY 10/22/19 nitrofurantoin 100 mg PO BID UTI 10 days #20 caps 10/22/19 monohydrate/macrocrystals 100 mg capsule amoxicillin 500 mg tablet 500 mg PO TID 10 days #30 tabs 09/09/20 Allergies Allergy/AdvReac Type Severity Reaction Status Date / Time No Known Allergies Allergy Verified 05/03/20 11:27 [facility] Disclaimer: The information contained in this section may have been updated after the patient was seen, as this information can be updated by other users. Social History Smoking Status: Unknown if ever smoked alcohol intake: never substance use type: denies use current occupational status: other Travel in the last 8 weeks: None household members: spouse housing: house current occupational exposures/hazards: No caffeine: No ROS Obtained: Yes All systems reviewed & no additional complaints except as documented Physical Exam General General appearance: alert and in no apparent distress Head Head exam: atraumatic and normocephalic Eye Eye exam: Present normal appearance, PERRL and EOMI ENT ENT exam: Present normal exam, normal oropharynx, mucous membranes moist and normal external ear exam Neck Neck exam: Present normal inspection, full ROM and trachea midline; Absent tenderness Chest Chest inspection: Present normal inspection and symmetric chest wall rise; Absent tenderness Respiratory Respiratory exam: Present normal lung sounds bilaterally; Absent respiratory distress, wheezes, stridor or accessory muscle use Cardiovascular Cardiovascular exam: Present regular rate and normal rhythm Abdominal Exam Abdominal exam: Present soft; Absent distention, tenderness or guarding Extremities Exam Extremities exam: Present full ROM, normal capillary refill, joint swelling (L knee joint effusion, mild) and other (Intact ROM with only limitations in end range. Able to bear weight without difficulty. No obvious deformities or traumatic injuries. No significant tenderness. No redness, warmth, or skin changes); Absent tenderness or edema Back Exam Back exam: Present normal inspection and full ROM; Absent tenderness Neurological Exam Neurological exam: Present alert, oriented X3, CN II-XII intact and normal gait; Absent motor sensory deficit Psychiatric Psychiatric exam: Present normal affect and normal mood Skin Skin exam: Present warm and dry Medical Decision Making Medical Records Medical records reviewed: Yes I reviewed the patient's medical records. Jj Inquiry Pt receiving controlled substance: No Vital Signs: 06/17/24 09:55 06/17/24 10:00 06/17/24 10:30 Temperature 97.5 F L Temperature Source Oral Pulse Rate 63 57 L Pulse Rate [Radial] 64 Respiratory Rate 16 Blood Pressure 140/119 H 143/76 H Blood Pressure [Right Arm] 135/105 H Blood Pressure Mean [Right Arm] 115 Blood Pressure Source Blood Pressure Source [Right Arm] Automatic Cuff Blood Pressure Position Blood Pressure Position [Right Arm] Sitting 02 Sat by Pulse Oximetry 97 97 96 Oxygen Delivery Method Room Air Room Air Room Air 06/17/24 14:11 Temperature 97.5 F L Temperature Source Oral Pulse Rate 57 L Pulse Rate [Radial] Respiratory Rate 16 Blood Pressure 143/76 H Blood Pressure [Right Arm] Blood Pressure Mean [Right Arm] Blood Pressure Source Automatic Cuff Blood Pressure Source [Right Arm] Blood Pressure Position Sitting Blood Pressure Position [Right Arm] 02 Sat by Pulse Oximetry Oxygen Delivery Method Room Air Lab Data Lab results reviewed: Yes I reviewed the patient's lab results. Lab Results 06/17/24 13:06: WBC 7.3, RBC 4.78, Hgb 14.7, Hct 44.5, MCV 93.2, MCH 30.7, MCHC 33.0, RDW 14.3, Plt Count 135 L, MPV 12.5 H, Neut % (Auto) 64.4, Lymph % (Auto) 24.2, Harlan % (Auto) 7.5, Eos % (Auto) 3.2, Baso % (Auto) 0.7, Neut # (Auto) 4.7, Lymph # (Auto) 1.8, Harlan # (Auto) 0.6, Eos # (Auto) 0.2, Baso # (Auto) 0.1, ESR 1, PT 11.4, INR 1.02, APTT 28.3, Sodium 140, Potassium 3.8, Chloride 110 H, Carbon Dioxide 24, Anion Gap 9.8, BUN 19, Creatinine 0.70, Estimated Creat Clear 79, Estimated GFR 109, Est GFR ( Amer) 132, Glucose 113 H, Calcium 8.2 L, Total Bilirubin 0.8, AST 35, ALT 40, Alkaline Phosphatase 92, C-Reactive Protein 2.5, Total Protein 6.9, Albumin 4.2, Globulin 2.7, Albumin/Globulin Ratio 1.6 06/17/24 13:06 06/17/24 13:06 Orders (Tests/Meds): ORDERS Category Date Time Status Ankle XR -Right minimum 3 Views [XR ankle RT min 3V] Exams 06/17/24 10:25 Completed Stat Knee XR left 3 views [XR knee LT 3V] Stat Exams 06/17/24 10:25 Completed XR femur LT 2V Stat Exams 06/17/24 10:25 Completed XR foot RT min 3V Stat Exams 06/17/24 10:25 Completed XR tibia fibula LT 2V Stat Exams 06/17/24 10:25 Completed CRP [C-Reactive Protein] Stat Lab 06/17/24 13:06 Completed Complete Blood Count Auto Diff Stat Lab 06/17/24 13:06 Completed Comprehensive Metabolic Panel Stat Lab 06/17/24 13:06 Completed ESR [Erythrocyte Sedimentation Rate] Stat Lab 06/17/24 13:06 Completed PT INR [Prothrombin Time INR] Stat Lab 06/17/24 13:06 Completed PTT [Activated Partial Thrombo Time] Stat Lab 06/17/24 13:06 Completed Medical Decision Narrative: In summary, this patient is a 79-year-old male presenting to the Emergency Department for evaluation of atraumatic acute on chronic left knee and right ankle pain. Differential diagnoses considered include but are not limited to osteoarthritis, Toure's cyst, musculoskeletal strain/pain, tendinitis, fracture. Ruling out the most morbid conditions drove assessment. On exam, the patient is very well-appearing. He is had no known trauma and exam is reassuring with no redness, warmth, severe limitations in range of motion, or other concerns. He does have small joint effusion. He is neurovascularly intact. He is able to bear weight. Workup included x-rays of the left femur, knee, and tib-fib as well as the right foot and ankle. I independently interpreted x-rays prior to the radiologist read and noted left knee joint effusion but no acute bony abnormality otherwise. Please see their read for final interpretation. Labs were obtained that demonstrated no significant leukocytosis, negative ESR, negative CRP. On reassessment again, the patient is ambulatory without any issue. He does have joint effusion with subtle limitations in range of motion, no redness or warmth. Negative inflammatory markers which would suggest against septic arthritis. I feel he likely has flare of osteoarthritis. Ultimately, feel it is appropriate for discharge home with follow-up with orthopedics, as I feel we have ruled out acutely life-threatening pathology. Strict return precautions were given. Critical Care Critical Care Time Critical Care Time: No
[2024-06-17 13:14] LABS: Basophils # 0.1 K/mm3 (0-0.2); Basophils % 0.7 % (0.1-2.0); Eosinophils # 0.2 K/mm3 (0.0-0.4); Eosinophils % 3.2 % (0.1-12.0); Hematocrit 44.5 % (42.0-52.0); Hemoglobin 14.7 g/dL (14.1-18.0); Lymphocytes # 1.8 K/mm3 (0.7-4.5); Lymphocytes % 24.2 % (10-50); Mean Corpuscular Hemoglobin 30.7 pg (27.0-31.2); Mean Corpuscular Volume 93.2 fl (80-94); Mean Platelet Volume 12.5 fl (7.4-10.4); Monocytes # 0.6 K/mm3 (0.1-1.0); Monocytes % 7.5 % (1.7-9.3); Neutrophils # 4.7 K/mm3 (1.8-7.8); Neutrophils % 64.4 % (37.0-80.0); Platelet Count 135 K/mm3 (142-424); Red Blood Count 4.78 M/mm3 (4.60-6.20); Red Cell Distribution Width 14.3 % (11.5-17.5); White Blood Count 7.3 K/mm3 (4.8-10.8)
[2024-06-17 13:18] LABS: Albumin Level 4.2 g/dl (3.5-5.0); Chloride 110 mmol/L (98-107); Potassium 3.8 mmoL/L (3.5-5.1); Sodium 140 mmol/L (136-145)
[2024-06-17 13:20] LABS: Blood Urea Nitrogen 19 mg/dl (9-20); Creatinine Clearance Estimated 79 mL/min (50-200); Estimated Glomerular Filt Rate 109 ml/min (>60); GFR (African American) 132 ML/MIN (>60)
[2024-06-17 13:21] LABS: Alanine Aminotransferase 40 U/L (12-78); Albumin/Globulin Ratio 1.6 (1.1-1.8); Alkaline Phosphatase 92 U/L (38-126); Anion Gap 9.8 mEq/L (5-15); Aspartate Amino Transferase 35 U/L (17-59); Bilirubin,Total 0.8 mg/dl (0.2-1.3); Calcium 8.2 mg/dl (8.4-10.2); Carbon Dioxide 24 mmol/L (22.0-30.0); Globulin 2.7 g/dL (1.3-3.2); Glucose 113 mg/dl (74-100); Total Protein,Serum 6.9 g/dl (6.3-8.2)
[2024-06-17 13:22] LABS: Activated Partial Thrombo Time 28.3 seconds (22.8-30.6); INR 1.02 (0.9-1.1); Prothrombin Time 11.4 seconds (10.1-12.5)
[2024-06-17 13:31] LABS: C-Reactive Protein 2.5 mg/L (0-4)
[2024-06-17 13:45] LABS: Erythrocyte Sedimentation Rate 1 mm/hr (0-20)
[2024-06-17 14:11] VITALS: BP 143/76; PULSE 57; RESP 16; TEMP 36.4; O2SAT 96
== END 2024-06-17 14:12 | disposition home or self-care (01) ==
PROVIDERS: Emergency Provider Emergency Medicine
DX: M25.562 Pain in left knee (principal); M25.462 Effusion, left knee; M25.571 Pain in right ankle and joints of right foot
CPT/HCPCS: 73552; 73562; 73590; 73610; 73630; 80053; 85025; 85610; 85651; 85730; 86140; 99284

== ENCOUNTER 2025-04-29 16:42 | Emergency (ER) | payer OTHER, SELFPAY ==
[2025-04-29 16:52] VITALS: BP 159/67; PULSE 64; RESP 18; TEMP 36.8; O2SAT 99; BMI 33.3
--- NOTE | 2025-04-29 17:30 | ED_ITS ---
Discharge Plan Disposition Patient Disposition: Home, Self-Care Prescriptions Prescriptions: New ibuprofen 800 mg tablet 800 mg PO Q8H PRN (Reason: pain) Qty: 15 0RF Rx Instructions: Do not combine with your meloxicam and restart your meloxicam once that is finished please take it with a little bit of food. No Action meloxicam 7.5 mg tablet 7.5 mg PO DAILY hydroxyzine HCl 10 mg tablet 10 mg PO TID-QID PRN (Reason: Anxiety) hydrocodone-acetaminophen 7.5-325 mg tablet 1 tab PO ONCE diclofenac sodium [Voltaren] 1 % gel 4 g TOPICAL QID Qty: 30 2RF Rx Instructions: apply to single knee, ankle, foot; gently massage into area; for foot includes sole/toes/top of foot fluticasone propionate [Flonase Allergy Relief] 50 mcg/actuation spray,suspension 2 spray intranasal DAILY Qty: 16 2RF Rx Instructions: administer into each nostril daily amoxicillin-pot clavulanate [Augmentin] 500-125 mg tablet 1 tab PO BID 7 Days Qty: 14 0RF ibuprofen 800 MG tablet 800 mg PO TID cholecalciferol (vitamin D3) 50,000 UNIT capsule 50,000 unit PO WEEKLY lisinopril 20 MG tablet 20 mg PO DAILY 0RF Finasteride [Proscar] 5 mg PO DAILY 0RF Simvastatin 40 mg PO DAILY 0RF Referrals Follow up/Referrals: Provider,Referral, MD [Primary Care Provider, Medical] - See instructions Activity Restrictions/Add. Instructions Additional Instructions/Restrictions: At this time it was felt you are safe to be discharged home. If new or worsening symptoms please do not hesitate to return the emergency department. [facility]. Please wear your prefabricated splints at night. Clinical Impressions Clinical Impression: Bilateral carpal tunnel syndrome Print Language Print Language: Tunisian Discharge ED Provider: Terry Martinez General Adult HPI General Chief complaint: PAIN Stated complaint: Pain in both hands Time Seen by Provider: 04/29/25 17:10 Mode of Arrival: Ambulatory Source of Information: Patient Description of Symptoms (Recalled from ER Triage Doc. by RN): Pt presents with c/o bilateral hand pain. 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 He has had problems with his bilateral hands secondary to carpal tunnel syndrome for some time has intermittent swelling at his medial wrist bilaterally however he has not had this degree of discomfort does not present here for continued evaluation. 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 No trauma. No other acute complaints at this time. Please note that above description of symptoms, in this electronic medical record under categorization of recalled from ER triage doctor by RN are reflective of an initial nursing assessment, however, is not reflective of my full history and physical exam that was personally taken and clarified. Consequentially, this preceding description of symptoms, which may include the patient's categorized chief complaint in the EMR, do not reflect my personal clinical impression, and the ultimate description of history of present illness and patient stated complaints should be deferred to this section of the note. Unless stated otherwise or congruent with this section of the note, additional signs, symptoms, or incongruence should be interpreted as inaccurate with my clinical impression. Related Data Home Medications ?Medication ?Instructions ?Recorded ?Confirmed hydrocodone 7.5 mg-acetaminophen 1 tab PO ONCE Pain 04/13/25 325 mg tablet Held on 10/22/19. Instructions: Resume on 11/02/19. Resume once he stops the Percocet (post op pain meds) hydroxyzine HCl 10 mg tablet 10 mg PO TID-QID PRN Anxi ety 01/16/18 04/13/25 cholecalciferol (vitamin D3) 1,250 50,000 unit PO WEEK LY Supplement 10/20/19 04/13/25 mcg (50,000 unit) capsule ibuprofen 800 mg tablet 800 mg PO TID Pain 10/20/19 04/13/25 meloxicam 7.5 mg tablet 7.5 mg PO DAILY 02/01/2002/02 Previous Rx's ?Medication ?Instructions ?Recorded diclofenac sodium 1 % topical gel 4 g topical QID pain #30 grams 04/07/19 (Voltaren) Finasteride [Proscar] 5 mg PO DAILY 10/22/19 Simvastatin 40 mg PO DAILY 10/22/19 lisinopril 20 mg tablet 20 mg PO DAILY 10/22/19 amoxicillin 500 mg-potassium 1 tab PO BID 7 days #14 t abs 04/13/25 clavulanate 125 mg tablet (Augmentin) fluticasone propionate 50 2 spray intranasal DAILY #16 grams 04/13/25 mcg/actuation nasal spray,suspension (Flonase Allergy Relief) ibuprofen 800 mg tablet 800 mg PO Q8H PRN pain #15 t abs 04/29/25 Allergies Allergy/AdvReac Type Severity Reaction Status Date / Time No Known Allergies Allergy Verified 04/13/25 12:31 [facility] Disclaimer: The information contained in this section may have been updated after the sunny ent was seen, as this information can be updated by other users. Medical History (Updated 04/29/25 @ 17:29 by Terry Martinez MD) Sinusitis Abnormal electrocardiogram Acquired equinus deformity of left foot Chronic ankle pain Class 1 obesity COPD, group D, by GOLD 2017 classification Hypertension with goal to be determined Instability of right ankle joint Other hyperlipidemia Symptoms of urinary tract infection Synovitis of right ankle Social History Smoking Status: Never smoker alcohol intake: never substance use type: denies use current occupational status: other Travel in the last 8 weeks?: None household members: spouse housing: house current occupational exposures/hazards: No caffeine: No Have you lived/traveled outside [place] in past 30 days?: No Contact w/someone who lives/traveled outside [place] past 30 days?: No Exposure to someone with infectious disease in past 14 days?: No Do you have a fever (greater than 100.4 F or 38 C)?: No Have you tested positive for COVID-19?: No Exposed to someone with COVID-19 in past 14 days?: No Do you have a sore throat?: No Do you have a cough?: No Do you have any weakness?: No Do you have any diarrhea?: No Are you experiencing any unusual bleeding?: No Do you have any muscle aches/pain?: No Do you have any abdominal pain?: No Are you experiencing loss of taste or smell?: No Other Medical History Have you received the Flu Vaccine for this season: No Have you received the Pneumonia Vaccine: No ROS Obtained: Yes Systems reviewed as appropriate & no additional complaints except as documented Physical Exam General General appearance: alert and in no apparent distress Head Head exam: atraumatic and normocephalic Eye Eye exam: Present PERRL and EOMI ENT ENT exam: Present mucous membranes moist Neck Neck exam: Present normal inspection Chest Chest inspection: Present normal inspection and symmetric chest wall rise Respiratory Respiratory exam: Absent respiratory distress Cardiovascular Cardiovascular exam: Present regular rate and normal rhythm Extremities Exam Extremities exam: Present normal inspection and other (Limited abduction of thumbs bilaterally. Distal capillary refill preserved in all digits of the bilateral hands. There is some arthrosis of the CMC and MCP joints bilaterally.) Neurological Exam Neurological exam: Present alert and other (Paresthesias in median nerve distribution bilateral hands. Endoscopy Technican strength 2 out of 5 right hand 4 out of 5 left hand.) Psychiatric Psychiatric exam: Present normal affect Skin Skin exam: Present warm and dry Medical Decision Making Medical Records Screening: Per USPSTF and CDC recommendations, given the prevalence of disease in our region, it is our hospital?s policy to screen for HIV and viral Hepatitis for all patients aged 18 and over and those with ongoing risk factors. Jj Inquiry Pt receiving controlled substance: No Vital Signs: 04/29/25 16:52 Temperature 98.2 F Temperature Source Oral Pulse Rate [Right] 64 Respiratory Rate 18 Blood Pressure [Right Arm] 159/67 H Blood Pressure Mean [Right Arm] 97 02 Sat by Pulse Oximetry 99 Oxygen Delivery Method Room Air Orders (Tests/Meds): ED MEDICATIONS Discontinued Medications Generic Name Dose Route Start Last Admin Trade Name Freq PRN Reason Stop Dose Admin Dexamethasone 10 mg 04/29/25 17:26 Dexamethasone 4mg Tablet PO 04/29/25 17:27 ONCE ONE Medical Decision Narrative: In summary patient is 72-year-old male past medical history described above who presents emergency department for evaluation of bilateral hand pain in setting of known bilateral carpal tunnel syndrome. Patient is hemodynamically stable upon arrival. He has no red hot swollen joints that would cause me to suspect that he has septic arthritis of his wrist. No trauma to suspect fracture. 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 He does have some evidence of osteoarthritis as well. Workup with labs and imaging was considered however given they are likely to not add to clinical picture will be deferred at this time. 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 He understands this and was discharged with bilateral prefabricated wrist splints to sleep in. Critical Care Critical Care Time Critical Care Time: No
[2025-04-29] MEDS: DEXAMETHASONE 4MG TABLET 10 MG PO (17:38)
[2025-04-29 17:44] VITALS: BP 115/99; PULSE 65; RESP 13; TEMP 36.7; O2SAT 96
== END 2025-04-29 17:44 | disposition home or self-care (01) ==
PROVIDERS: Emergency Provider Emergency Medicine
DX: G56.03 Carpal tunnel syndrome, bilateral upper limbs (principal); M79.641 Pain in right hand; M79.642 Pain in left hand
CPT/HCPCS: 99283; J8540

== ENCOUNTER 2025-08-08 12:59 | Emergency (ER) | payer OTHER, SELFPAY ==
[2025-08-08] VITALS (8 sets, daily range): BP systolic 130–154; BP diastolic 68–82; PULSE 47–60; RESP 11–18; TEMP 36.8–37.1; O2SAT 96–99; BMI 31.6
--- NOTE | 2025-08-08 13:05 | ECG_ITS ---
APPROVED REPORT Exam: Resting ECG HR:54 bpm ECG Measurements Heart Rate 54 AXES CA 252 P -9 QRSd 69 QRS -19 QT 378 T 24 QTc 364 Conclusion SINUS BRADYCARDIA WITH FIRST DEGREE AV BLOCK INFERIOR MYOCARDIAL INFARCTION , PROBABLY OLD [40+ ms Q WAVE AND/OR ST/T ABNORMALITY IN II/aVF] ABNORMAL ECG UNCONFIRMED REPORT Electronically signed by : BRIANDA SANTIAGO, 08/09/2025 23:03:47
--- NOTE | 2025-08-08 13:11 | CT_ITS ---
PROCEDURE INFORMATION: Exam: CT Head Without Contrast Exam date and time: 08/08/2025 1:44 PM Age: 80 years old Clinical indication: Other: Feels off balance TECHNIQUE: Imaging protocol: Computed tomography of the head without contrast. Radiation optimization: All CT scans at this facility use at least one of these dose optimization techniques: automated exposure control; mA and/or kV adjustment per patient size (includes targeted exams where dose is matched to clinical indication); or iterative reconstruction. COMPARISON: No relevant prior studies available. FINDINGS: Brain: No intracranial mass, acute hemorrhage, or acute infarction. Cerebral ventricles: No ventriculomegaly. Paranasal sinuses: Mild ethmoid sinus disease. Mastoid air cells: Normal as visualized. Bones: Unremarkable. No acute fracture. Soft tissues: Unremarkable. Vasculature: Atherosclerotic vascular disease. IMPRESSION: No acute intracranial abnormality.
--- NOTE | 2025-08-08 13:14 | CT_ITS ---
PROCEDURE INFORMATION: Exam: CTA Head With Contrast, Arteriography Exam date and time: 08/08/2025 1:45 PM Age: 80 years old Clinical indication: Other: Feels off balance TECHNIQUE: Imaging protocol: Computed tomographic angiography of the head with contrast. Exam focused on the arteries. 3D rendering (Not supervised by radiologist): MIP and/or 3D reconstructed images were created by the technologist. Radiation optimization: All CT scans at this facility use at least one of these dose optimization techniques: automated exposure control; mA and/or kV adjustment per patient size (includes targeted exams where dose is matched to clinical indication); or iterative reconstruction. Contrast material: ISO 370; Contrast volume: 80 ml; Contrast route: INTRAVENOUS (IV); COMPARISON: CT HEAD/BRAIN WO CON 08/08/2025 1:44 PM FINDINGS: ANTERIOR CIRCULATION: Right internal carotid artery: Intracranial segment is patent with no significant stenosis. No aneurysm. Right middle cerebral artery: No occlusion or significant stenosis. No aneurysm. Right anterior cerebral artery: No occlusion or significant stenosis. No aneurysm. Left internal carotid artery: Intracranial segment is patent with no significant stenosis. No aneurysm. Left middle cerebral artery: No occlusion or significant stenosis. No aneurysm. Left anterior cerebral artery: No occlusion or significant stenosis. No aneurysm. POSTERIOR CIRCULATION: Right vertebral artery: No occlusion or significant stenosis. No aneurysm. Left vertebral artery: No occlusion or significant stenosis. No aneurysm. Basilar artery: No occlusion or significant stenosis. No aneurysm. Right posterior cerebral artery: No occlusion or significant stenosis. No aneurysm. Left posterior cerebral artery: No occlusion or significant stenosis. No aneurysm. Brain: No definite mass, mass effect, or midline shift. Cerebral ventricles: No ventriculomegaly. Bones/joints: Unremarkable. No acute fracture. Soft tissues: Unremarkable. IMPRESSION: No intracranial arterial significant stenosis or occlusion.
--- NOTE | 2025-08-08 13:14 | CT_ITS ---
PROCEDURE INFORMATION: Exam: CTA Neck With Contrast Exam date and time: 08/08/2025 1:45 PM Age: 80 years old Clinical indication: Other: Feels off balance TECHNIQUE: Imaging protocol: Computed tomographic angiography of the neck with contrast. Exam focused on the cervical segments of the vasculature. 3D rendering (Not supervised by radiologist): MIP and/or 3D reconstructed images were created by the technologist. Radiation optimization: All CT scans at this facility use at least one of these dose optimization techniques: automated exposure control; mA and/or kV adjustment per patient size (includes targeted exams where dose is matched to clinical indication); or iterative reconstruction. Contrast material: ISO 370; Contrast volume: 80 ml; Contrast route: INTRAVENOUS (IV); COMPARISON: CT ANGIO NECK 08/08/2025 1:45 PM FINDINGS: Right common carotid artery: No stenosis. No dissection or occlusion. Right internal carotid artery: No stenosis of the extracranial segment. No dissection or occlusion. Right external carotid artery: No occlusion or stenosis of the origin. Left common carotid artery: No stenosis. No dissection or occlusion. Left internal carotid artery: No stenosis of the extracranial segment. No dissection or occlusion. Left external carotid artery: No occlusion or stenosis of the origin. Right vertebral artery: No stenosis. No dissection or occlusion. Left vertebral artery: No stenosis. No dissection or occlusion. Soft tissues: Normal. No significant soft tissue swelling. Bones/joints: No acute fracture. IMPRESSION: No extracranial arterial significant stenosis or occlusion. REFERENCES: NASCET CRITERIA. The degree of stenosis in the cervical segment of the internal carotid artery is based on NASCET criteria. Normal is no stenosis. Mild is less than 50% stenosis. Moderate is 50-69% stenosis. Severe is 70% to 99% stenosis. Total occlusion is no detectable patent lumen.
[2025-08-08 13:22] LABS: Hematocrit 39.6 % (42.0-52.0); Hemoglobin 13.4 g/dL (14.1-18.0); Immature Granulocytes % 0.1 %; Mean Corpuscular HGB Conc 33.8 g/dL (31.8-35.4); Mean Corpuscular Hemoglobin 30.6 pg (27.0-31.2); Mean Corpuscular Volume 90.4 fl (80-94); Nucleated Red Blood Cells % 0 %; Platelet Count 131 K/mm3 (142-424); Red Blood Count 4.38 M/mm3 (4.60-6.20); Red Cell Distribution Width-SD 44.8 fL; White Blood Count 6.9 K/mm3 (4.8-10.8)
[2025-08-08 13:29] LABS: Alanine Aminotransferase 28 U/L (12-78); Albumin Level 4.0 g/dl (3.5-5.0); Albumin/Globulin Ratio 1.5 (1.1-1.8); Alkaline Phosphatase 89 U/L (38-126); Anion Gap 11.8 mEq/L (5-15); Aspartate Amino Transferase 29 U/L (17-59); Bilirubin,Total 0.7 mg/dl (0.2-1.3); Blood Urea Nitrogen 15 mg/dl (9-20); Calcium 8.8 mg/dl (8.4-10.2); Carbon Dioxide 23 mmol/L (22.0-30.0); Chloride 108 mmol/L (98-107); Creatinine Clearance Estimated 74 mL/min (50-200); Creatinine,Serum 0.60 mg/dl (0.66-1.25); Estimated Glomerular Filt Rate 130 ml/min (>60); GFR (African American) 158 ML/MIN (>60); Globulin 2.6 g/dL (1.3-3.2); Glucose 148 mg/dl (74-100); Potassium 3.8 mmoL/L (3.5-5.1); Sodium 139 mmol/L (136-145); Total Protein,Serum 6.6 g/dl (6.3-8.2)
[2025-08-08 13:41] LABS: Troponin I < 0.01 ng/ml (0.00-0.034)
[2025-08-08] MEDS: 0.9 % SODIUM CHLORIDE 50 ML VIAL IV (13:42)
[2025-08-08] MEDS: IOPAMIDOL-370 (76%);100ML BOTTLE 80 ML IV (13:43)
[2025-08-08] MEDS: SODIUM CHLORIDE 0.9% 10ML SYR (RAD ONLY) 10 ML IV (13:43)
[2025-08-08 14:28] LABS: Hepatitis C Ab Qual. W/ RFX NEGATIVE (Negative)
--- NOTE | 2025-08-08 14:42 | XR_ITS ---
PROCEDURE INFORMATION: Exam: XR Chest Exam date and time: 08/08/2025 2:53 PM Age: 80 years old Clinical indication: Other: Dizziness TECHNIQUE: Imaging protocol: Radiologic exam of the chest. Views: 1 view. COMPARISON: CR XR CHEST 2V 09/30/2019 2:08 PM FINDINGS: Lungs: Normal. Pleural spaces: Normal. Heart/Mediastinum: Normal. Bones/joints: Multilevel thoracic spine degenerative disc space narrowing and osteophyte formation. IMPRESSION: No acute cardiopulmonary abnormality.
[2025-08-08] MEDS: SODIUM CHLORIDE 0.9% 500ML BAG 500 ML IV ×2 (14:55→15:59)
--- NOTE | 2025-08-08 15:52 | PC.NURSE ---
called [facility] per JOSE G Tian for pt [facility] for symptomatic bradycardia.
--- NOTE | 2025-08-08 16:13 | HMH.EDGENADL ---
Discharge Plan Disposition Patient Disposition: Xfer Short-Term Hosp Prescriptions Prescriptions: No Action meloxicam 7.5 mg tablet 7.5 mg PO DAILY hydroxyzine HCl 10 mg tablet 10 mg PO TID-QID PRN (Reason: Anxiety) hydrocodone-acetaminophen 7.5-325 mg tablet 1 tab PO ONCE diclofenac sodium [Voltaren] 1 % gel 4 g TOPICAL QID Qty: 30 2RF Rx Instructions: apply to single knee, ankle, foot; gently massage into area; for foot includes sole/toes/top of foot fluticasone propionate [Flonase Allergy Relief] 50 mcg/actuation spray,suspension 2 spray intranasal DAILY Qty: 16 2RF Rx Instructions: administer into each nostril daily amoxicillin-pot clavulanate [Augmentin] 500-125 mg tablet 1 tab PO BID 7 Days Qty: 14 0RF ibuprofen 800 MG tablet 800 mg PO TID cholecalciferol (vitamin D3) 50,000 UNIT capsule 50,000 unit PO WEEKLY lisinopril 20 MG tablet 20 mg PO DAILY 0RF Finasteride [Proscar] 5 mg PO DAILY 0RF Simvastatin 40 mg PO DAILY 0RF ibuprofen 800 mg tablet 800 mg PO Q8H PRN (Reason: pain) Qty: 15 0RF Rx Instructions: Do not combine with your meloxicam and restart your meloxicam once that is finished please take it with a little bit of food. Referrals Follow up/Referrals: Provider,Referral, [Primary Care Provider, Medical] - See instructions Clinical Impressions Clinical Impression: Symptomatic bradycardia Stand Alone Forms Stand Alone Forms: Transfer Record - ED Print Language Print Language: Austrian Discharge ED Provider: Karla Mahmood General Adult HPI General Chief complaint: Dizziness Stated complaint: dizzy, lighthead Time Seen by Provider: 08/08/25 13:03 Mode of Arrival: Ambulatory Source of Information: Patient Description of Symptoms (Recalled from ER Triage Doc. by RN): patient states last couple of days he has been dizzy and lightheaded. History of Present Illness HPI narrative: Patient presents complaining of feeling off balance for 2 to 3 days. He reports that the symptoms are most notable while walking. He denies any chest pain, shortness of breath. Denies any nausea vomiting or diarrhea. Denies any decreased p.o. intake. He reports that the symptoms are constant, possibly worse with going from sitting to standing. MD complaint: dizziness Onset (ago): day(s) (2-3) Radiation: non-radiation Severity: moderate Consistency: constant Relieving factors: none Exacerbating factors: other (standing) Associated symptoms: denies other symptoms Treatments prior to arrival: none Related Data Home Medications ?Medication ?Instructions ?Recorded ?Confirmed hydrocodone 7.5 mg-acetaminophen 1 tab PO ONCE Pain 01/16/18 04/13/25 325 mg tablet Held on 10/22/19. Instructions: Resume on 11/02/19. Resume once he stops the Percocet (post op pain meds) hydroxyzine HCl 10 mg tablet 10 mg PO TID-QID PRN Anxiety 01/16/18 04/13/25 cholecalciferol (vitamin D3) 1,250 50,000 unit PO WEEKLY Supplement 10/20/19 04/13/25 mcg (50,000 unit) capsule ibuprofen 800 mg tablet 800 mg PO TID Pain 10/20/19 04/13/25 meloxicam 7.5 mg tablet 7.5 mg PO DAILY 02/01/20 04/13/25 Previous Rx's ?Medication ?Instructions ?Recorded diclofenac sodium 1 % topical gel 4 g topical QID pain #30 grams 04/07/19 (Voltaren) Finasteride [Proscar] 5 mg PO DAILY 10/22/19 Simvastatin 40 mg PO DAILY 10/22/19 lisinopril 20 mg tablet 20 mg PO DAILY 10/22/19 amoxicillin 500 mg-potassium 1 tab PO BID 7 days #14 tabs 04/13/25 clavulanate 125 mg tablet (Augmentin) fluticasone propionate 50 2 spray intranasal DAILY #16 grams 04/13/25 mcg/actuation nasal spray,suspension (Flonase Allergy Relief) ibuprofen 800 mg tablet 800 mg PO Q8H PRN pain #15 tabs 04/29/25 Allergies Allergy/AdvReac Type Severity Reaction Status Date / Time No Known Allergies Allergy Verified 04/13/25 12:31 [facility] Disclaimer: The information contained in this section may have been updated after the patient was seen, as this information can be updated by other users. Medical History (Updated 08/08/25 @ 16:31 by JOSE G Shah) Sinusitis Abnormal electrocardiogram Acquired equinus deformity of left foot Chronic ankle pain Class 1 obesity COPD, group D, by GOLD 2017 classification Hypertension with goal to be determined Instability of right ankle joint Other hyperlipidemia Symptoms of urinary tract infection Synovitis of right ankle Social History Smoking Status: Never smoker alcohol intake: never substance use type: denies use current occupational status: other Travel in the last 8 weeks?: None household members: spouse housing: house current occupational exposures/hazards: No caffeine: No Have you lived/traveled outside [place] in past 30 days?: No Contact w/someone who lives/traveled outside [place] past 30 days?: No Exposure to someone with infectious disease in past 14 days?: No Do you have a fever (greater than 100.4 F or 38 C)?: No Have you tested positive for COVID-19?: No Exposed to someone with COVID-19 in past 14 days?: No Do you have a sore throat?: No Do you have a cough?: No Do you have any weakness?: No Do you have any diarrhea?: No Are you experiencing any unusual bleeding?: No Do you have any muscle aches/pain?: No Do you have any abdominal pain?: No Are you experiencing loss of taste or smell?: No Other Medical History Have you received the Flu Vaccine for this season: No Have you received the Pneumonia Vaccine: No ROS Obtained: Yes Systems reviewed as appropriate & no additional complaints except as documented Physical Exam General General appearance: alert and in no apparent distress Head Head exam: atraumatic and normocephalic Eye Eye exam: Present normal appearance and EOMI Chest Chest inspection: Present symmetric chest wall rise Respiratory Respiratory exam: Present normal lung sounds bilaterally; Absent wheezes or stridor Cardiovascular Cardiovascular exam: Present regular rate and normal rhythm; Absent systolic murmur Neurological Exam Neurological exam: Present alert and oriented X3; Absent CN II-XII intact, normal gait, motor sensory deficit or reflexes normal Psychiatric Psychiatric exam: Present normal affect and normal mood Skin Skin exam: Present warm, dry and intact Medical Decision Making Medical Records Screening: Per USPSTF and CDC recommendations, given the prevalence of disease in our region, it is our hospital?s policy to screen for HIV and viral Hepatitis for all patients aged 18 and over and those with ongoing risk factors. Jj Inquiry Pt receiving controlled substance: No Vital Signs: 08/08/25 13:07 08/08/25 14:23 08/08/25 14:30 Temperature 98.8 F Temperature Source Oral Pulse Rate 54 L 51 L Pulse Rate [Right Radial] 60 Respiratory Rate 15 16 18 Blood Pressure 131/72 130/68 Blood Pressure [Right Arm] 134/71 Blood Pressure Mean [Right Arm] 92 Blood Pressure Source Blood Pressure Source [Right Arm] Automatic Cuff Blood Pressure Position Blood Pressure Position [Right Arm] Supine 02 Sat by Pulse Oximetry 96 97 97 Oxygen Delivery Method Room Air Room Air Room Air 08/08/25 15:00 08/08/25 15:32 08/08/25 16:00 Temperature Temperature Source Pulse Rate 51 L 49 L 47 L Pulse Rate [Right Radial] Respiratory Rate 11 L 15 11 L Blood Pressure 133/74 148/82 H 154/76 H Blood Pressure [Right Arm] Blood Pressure Mean [Right Arm] Blood Pressure Source Blood Pressure Source [Right Arm] Blood Pressure Position Blood Pressure Position [Right Arm] 02 Sat by Pulse Oximetry 98 99 99 Oxygen Delivery Method Room Air Room Air 08/08/25 16:30 08/08/25 16:56 Temperature 98.2 F Temperature Source Oral Pulse Rate 48 L 53 L Pulse Rate [Right Radial] Respiratory Rate 13 16 Blood Pressure 149/82 H 149/82 H Blood Pressure [Right Arm] Blood Pressure Mean [Right Arm] Blood Pressure Source Automatic Cuff Blood Pressure Source [Right Arm] Blood Pressure Position Supine Blood Pressure Position [Right Arm] 02 Sat by Pulse Oximetry 99 Oxygen Delivery Method Room Air Room Air Lab Data Lab Results 08/08/25 13:14: WBC 6.9, RBC 4.38 L, Hgb 13.4 L, Hct 39.6 L, MCV 90.4, MCH 30.6, MCHC 33.8, RDW 13.4, Plt Count 131 L, MPV 12.9 H, Neut % (Auto) 58.9, Lymph % (Auto) 28.0, Ware % (Auto) 10.0 H, Eos % (Auto) 2.7, Baso % (Auto) 0.3, Neut # (Auto) 4.1, Lymph # (Auto) 1.9, Ware # (Auto) 0.7, Eos # (Auto) 0.2, Baso # (Auto) 0.0, Sodium 139, Potassium 3.8, Chloride 108 H, Carbon Dioxide 23, Anion Gap 11.8, BUN 15, Creatinine 0.60 L, Estimated Creat Clear 74, Estimated GFR 130, Est GFR ( Amer) 158, Glucose 148 H, Calcium 8.8, Total Bilirubin 0.7, AST 29, ALT 28, Alkaline Phosphatase 89, Troponin I < 0.01, Total Protein 6.6, Albumin 4.0, Globulin 2.6, Albumin/Globulin Ratio 1.5, HCV Ab LO w/Rflx PCR Qn Negative, HIV Ag/Ab Combo Qual Negative 08/08/25 15:50: Troponin I < 0.01 08/08/25 13:14 08/08/25 13:14 Orders (Tests/Meds): ED MEDICATIONS Generic Name Dose Route Start Last Admin Trade Name Freq PRN Reason Stop Dose Admin Sodium Chloride 10 ml 08/08/25 13:11 Sodium Chloride 0.9% 10ml Flush Syringe IV 09/07/25 13:10 NEEDED PRN Maintain IV Site Discontinued Medications Generic Name Dose Route Start Last Admin Trade Name Freq PRN Reason Stop Dose Admin Iopamidol 80 ml 08/08/25 13:41 08/08/25 13:43 Iopamidol-370 (76%);100ml Bottle IV 08/08/25 13:42 80 ml ONCE ONE Administration Sodium Chloride 50 ml 08/08/25 13:41 08/08/25 13:42 0.9 % Sodium Chloride 50 Ml Vial IV 08/08/25 13:42 50 ml ONCE ONE Administration Sodium Chloride 10 ml 08/08/25 13:41 08/08/25 13:43 Sodium Chloride 0.9% 10ml Syr (Rad Only) IV 08/08/25 13:42 10 ml ONCE ONE Administration Sodium Chloride 500 ml 08/08/25 14:43 08/08/25 14:55 Sodium Chloride 0.9% 500ml Bag IV 08/08/25 14:44 500 ml ONCE STA Administration Sodium Chloride 500 ml 08/08/25 15:34 08/08/25 15:59 Sodium Chloride 0.9% 500ml Bag IV 08/08/25 15:35 500 ml ONCE STA Administration ORDERS Category Date Time Status CT angio head Stat Cat Scan 08/08/25 13:[address] angio neck Stat Cat Scan 08/08/25 13:[address] head/brain wo con Stat Cat Scan 08/08/25 13:11 Completed CXR --portable [XR chest portable] Stat Exams 08/08/25 14:42 Completed CBC w/Auto Diff [Complete Blood Count Auto Diff] Stat Lab 08/08/25 13:14 Completed CMP [Comprehensive Metabolic Panel] Stat Lab 08/08/25 13:14 Completed HIV Combo Stat Lab 08/08/25 13:14 Completed Hepatitis C Ab Qual. W/ RFX Stat Lab 08/08/25 13:14 Completed Trop I [Troponin I] Stat Lab 08/08/25 13:14 Completed Troponin I Q3H Lab 08/08/25 15:50 Completed Troponin I Q3H Lab 08/08/25 19:15 Ordered Medical Decision Narrative: In summary patient is a 80-year-old male who presents the emergency department for evaluation of dizziness. Patient is bradycardic upon arrival, afebrile. Unremarkable physical exam, nonfocal neurologic exam. Differential diagnosis includes electrolyte abnormality, dehydration, CVA, ICH. Initial workup will be conducted with hematologic labs, CTA head and neck, CT brain, EKG. Initial inventions include IV fluid bolus. Initial workup reviewed by me unremarkable. Upon repeat evaluation patient continues to have bradycardia and dizziness. Given this patient admitted to the [facility] for further evaluation of symptomatic bradycardia. Critical Care Critical Care Time Critical Care Time: No
[2025-08-08 16:18] LABS: Troponin I < 0.01 ng/ml (0.00-0.034)
--- NOTE | 2025-08-08 16:51 | PC.NURSE ---
Johnie EMT-P at [facility] notified of the need to transport the pt to [facility]. He states they will be up here shortly.
== END 2025-08-08 17:45 | disposition short-term general hospital (02) ==
PROVIDERS: Physician Assistant; Emergency Provider Student in an Organized Health Care Education/Training Program
DX: R42 Dizziness and giddiness (principal); R00.1 Bradycardia, unspecified
CPT/HCPCS: 70450; 70496; 70498; 71045; 80053; 84484; 85025; 86803; 87389; 93005; 96374; 96375; 99284; 99285; J7040; Q9967